=== PATIENT | female | born 1955 | race Caucasian/White ===

== ENCOUNTER 2016-08-02 09:27 | Inpatient (IN) | payer BC ==
[~2016-08-02] VITALS: Ht 162.6 cm; Wt 97.5 kg
[2016-08-02] MEDS ORDERED: MIRALAX *UNIT DOSE* 17GM PACKET PO PRN (10:00)
[2016-08-02] MEDS ORDERED: FLEET ENEMA PR PRN (10:00)
[2016-08-02] MEDS ORDERED: MOM 30ML SUSPENSION UDC PO PRN (10:00)
[2016-08-02 11:20] VITALS: BP 133/83
[2016-08-02] MEDS ORDERED: FOLI1TAB2 PO (12:03)
[2016-08-02] MEDS ORDERED: WARF-20 PO (12:03)
[2016-08-02] MEDS ORDERED: FERR325T16 PO (12:03)
[2016-08-02] MEDS ORDERED: PROA1AER INH (12:03)
[2016-08-02] MEDS ORDERED: CYMB60CA3 PO (12:03)
[2016-08-02] MEDS ORDERED: METF1000 PO (12:03)
[2016-08-02] MEDS ORDERED: COLA100C3 PO (12:03)
[2016-08-02] MEDS ORDERED: DAILTAB51 PO (12:03)
[2016-08-02] MEDS ORDERED: CHLO25TA PO (12:03)
[2016-08-02] MEDS ORDERED: ATOR40TA PO (12:03)
[2016-08-02] MEDS ORDERED: COLC1TAB13 PO (12:03)
[2016-08-02] MEDS ORDERED: RAMI25CA PO (12:03)
[2016-08-02] MEDS ORDERED: ASPI1TAB PO (12:03)
[2016-08-02] MEDS ORDERED: ASCO500T PO (12:03)
[2016-08-02] MEDS ORDERED: METO25TAB PO (12:05)
[2016-08-02] MEDS ORDERED: GLUCOSE 4 GM CHEW TABLET PO PRN (13:30)
[2016-08-02] MEDS ORDERED: GLUCAGON FOR INJ 1 MG VIAL (J1610) SC PRN (13:30)
[2016-08-02] MEDS ORDERED: DEXTROSE 50% 50 ML SYRINGE IV PRN (13:30)
[2016-08-02 14:00] VITALS: BP 135/81
[2016-08-02] MEDS ORDERED: WARFARIN SOD 4 MG TAB PO SCH (17:00)
[2016-08-02] MEDS: HumaLOG INSULIN (NovoLOG) PER UNIT SC SCH ×2 (17:08→20:18)
[2016-08-02] MEDS: metFORMIN (GLUCOPHAGE) 1000 MG TABLET PO SCH (17:08)
[2016-08-02 20:00] VITALS: BP 142/82
--- NOTE | 2016-08-02 20:07 | PMRHPE ---
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 fracture status post open reduction and internal fixation (ORIF) on 07/26/2016. DIAGNOSES: 1. A. Left hemiparesis. B. Aphasia, receptive greater than expressive. 2. Atherosclerotic cardiovascular disease. A. Coronary artery disease. B. Peripheral vascular disease. C. Hypertension. D. Hyperlipidemia. 3. Type 2 diabetes. 4. Chronic kidney disease secondary to diabetes. 5. Gout. 6. Status post uterine cancer. 7. Status post chemotherapy for uterine cancer. 9. Status post median sternotomy, VALADEZ and endoscopic right saphenous vein harvesting. The patient is postoperative day #8 from her 07/25/2016 surgery. 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 EKG revealed notable ST and other changes, and the patient was transferred to [facility] on 07/19/2016. Cardiac catheterization revealed severe three vessel disease and angioplasty and stent placement were not considered adequate so on 07/25/2016 the patient had a coronary artery bypass graft (CABG) times [address] Gonzalez. The patient did fairly well transferring from the operating room to the intensive care unit (ICU) and then on her first postoperative day she transferred to the floor. Her chest tubes were removed on postoperative day #2, and she was started on Coumadin with INR goal of 1.5 to 1.8 to maintain the vein patency. She was also noted to develop left sided weakness, unsteady gait with communications and mental alterations. CT scan showed atrophy and chronic small vessel changes but no bleeds or acute abnormalities. The patient started evaluation with speech, physical and occupational therapies. She also had a flair up of right ankle tenderness, which was felt to be gout and was started on colchicine. She currently is on aspirin 81 mg as well as 4 mg of Coumadin per day for treatment of maintained vein patency and clot prevention. The patient also has obstructive sleep apnea and uses continuous positive airway pressure (CPAP). The patient overall has medically stabilized and been making progress in therapy and is felt to be ready for transition to acute intensive rehabilitation and was transferred today 08/02/2016 to the acute rehabilitation unit at [facility] for this treatment. PAST MEDICAL HISTORY: Includes diagnoses above and: 1. Arthritis. 2. Asthma. 3. Congestive heart failure (CHF). 4. Chronic kidney disease. 5. Diabetes type 2. 6. Gout. 7. Hypertension. 8. Uterine cancer. PAST SURGICAL HISTORY: Includes median sternotomy and restrictions of no more than 5 pounds to the upper extremities at this time. Also, VALADEZ, coronary artery bypass graft (CABG) times six vessel, endoscopic right saphenous vein harvest. FAMILY HISTORY: Not obtained. SOCIAL HISTORY: The patient lives in a [facility] style house in [place], [place] with four steps into it, then a porch and another step up into the house itself. There is a bathroom without shower or tub on the first floor, along with a kitchen, dining room and two other rooms. Bedrooms are up a flight of stairs and the second floor is the other bathing/showering area. 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 MEDICATIONS: On admission to the floor: - albuterol HFA while awake inhaler - Mylanta 30 mL as needed for dyspepsia - vitamin C 500 mg daily - enteric coated aspirin 81 mg a day - atorvastatin 40 mg at night - chlorthalidone 25 mg daily - colchicine 0.6 mg twice a day, we will continue this for approximately four more doses and then stop. - duloxetine 60 mg daily - ferrous gluconate 324 mg by mouth twice a day - folic acid 1 mg by mouth daily - metformin 1000 mg by mouth twice a day with meals - metoprolol tartrate 25 mg by mouth twice a day - milk of magnesia 30 mg by mouth daily as needed for constipation - multivitamin one daily - MiraLAX one packet daily as needed for constipation - Ramipril 2.5 mg daily - Senokot one tablet by mouth at night - Fleet enema daily as needed for constipation - tonight the patient will be at 4 mg of Coumadin and will be undertaking daily INR to keep INR range in the 1.5 to 1.8 range ALLERGIES: The patient is allergic to ACETAMINOPHEN, ERYTHROMYCIN, TETRACYCLINE FAMILY ANTIBIOTICS. REVIEW OF SYSTEMS: Negative HEENT. Negative general. Cardiac is sternal pain but no longer any radiation or pain that was present when she was having cardiac ischemia. Pulmonary is negative. No recent wheezing or dyspnea. GI/, bowel and bladder working well at this time. No indigestion or other problems. Musculoskeletal, left upper and lower extremity weakness. Some arthritis pain in the right ankle. Neurologically, moderate receptive aphasia with mild to moderate expressive aphasia and this is causing the patient to be a poor historian, but is able to confirm home environment. Mood with no problems reported or psychiatric complaints. PHYSICAL EXAMINATION: The patient is a well nourished, well developed, morbidly obese, middle-aged, white female of average height, weighing more than 105 kg, who is alert and appears to be in a good mood and very positively interacting and trying to work with staff; however, is a clearly poor historian. VITAL SIGNS: Temperature 97.3, blood pressure 133/83, pulse 84, respirations 18, and the patient is 95% oxygen saturation on room air. HEENT: Normocephalic, atraumatic without facial droop. There is no dysarthria of her speech. Tongue is midline. There are no oral lesions seen. Nasal passageways are patent and the septum is straight. The patient's hearing is good. NECK: Supple, nontender. No lymph nodes are found. Thyroid is midline without a goiter and of appropriate size. There are no carotid bruits. CARDIAC: Regular rate and rhythm. Normal S1, S2. She has 2/4 bilateral radial pulses and 1/4 dorsal pedis pulse. She has good perfusion in the hands and feet with blanching under the nail beds. Chest wall shows a healing sternal incision without erythema, edema or drainage and that is close to sealing. It appears to have a subcutaneous suture closure to it and has a clean dressing over it. She has three stab wounds from the chest tubes that are covered with Band-Aids and also showing no inflammation in the epigastric region. LUNGS: All hurley are clear to auscultation with good air movement. No wheezing, rales or rhonchi detected. ABDOMEN: Obese, mildly distended with some gas and tympany. No palpable masses but normal bowel sounds are present in all quadrants. EXTREMITIES: The patient has good functional range of motion of the upper and lower extremities. She has some tenderness around the right calf from the saphenous vein donation site. That incision is also healing well without drainage at this time. There is no inflammation seen on that incision site. However, there is notable purple-blue ecchymosis seen along the medial aspect of the right thigh, but no skin lesions present. There is nonpitting 2+ edema present in the distal lower extremities. NEUROLOGIC: As above, with the patient having moderate receptive and mild to moderate expressive aphasia. Her mood is good. She does seem to be very aware of where she is and why she is here and is very cooperative. [id number] could not be tested for light touch and vibration due to poor feedback because of her receptive and expressive aphasia. The patient does have 4 to 5 strength in the right upper and lower extremities, though right upper extremity was not stress tested due to the weight restrictions on it, but grasp is intact. Left upper and lower extremities, however, show greater than 3 out of 4 left upper extremity strength with some difficulty with placement and coordination. Left lower extremity again showing about 3 out of 5 strength and being able to pickup driver the leg; however, poor endurance is noted. Again, uncertain if this is the patient's best effort in light of communication deficits. However, tone is normal in upper and lower extremities. PSYCHIATRIC: Mood is good and the patient was pleasant and cooperative. PERTINENT LABORATORY: The patient's INR this morning was approximately 1.37, white blood count yesterday was 11.6 with hemoglobin of 8.1 and hematocrit of 24.0. MCV of 83.6 and platelets 265,000. Creatinine yesterday was mildly elevated at 1.05 with a normal BUN of 23, mildly low sodium 135, potassium 4.2, chloride slightly low at 98, carbon dioxide of 27. New laboratories will be checked tomorrow. ADMITTING DIAGNOSES: 1. Rehabilitation of embolic CVA with left hemiparesis and receptive aphasia. 2. Status post coronary artery bypass graft (CABG) times six vessels secondary to cardiac ischemia, congestive failure, coronary artery disease, hypertension, hyperlipidemia. 3. Type 2 diabetes mellitus with chronic kidney disease. 4. Gout in the right ankle. PLAN: With regard to the CVA, we will proceed with acute intensive three hours per day of therapy, including speech therapy to work on communications and further assessment regarding cognition, as well as review of swallowing, along with physical therapy (PT) to work on balance, mobility, endurance, and transfers and occupational therapy (OT) to work on activities of daily living, transfers. Restrictions include no more than 5 pound load to either upper extremity secondary to sternotomy. The patient will need wound care to the sternum and the left calf from the CABG. Anticipated length of stay is 18 to 21 days. 2. Atherosclerotic cardiovascular disease. We will continue antihypertensive medications of Ramipril, metoprolol tartrate, hyperlipidemia, atorvastatin, and also aspirin for antiplatelet activity, along with Coumadin with for now daily INR and target INR range of 1.5 to 1.8. 3. Diabetes. Hypoglycemic precautions have been ordered, and we will continue the metformin and a consistent carbohydrate diet, along with before food fingersticks and insulin sliding scale and also before food and nightly blood sugar check and sliding scale. 4. Gout. We will continue colchicine 6 mg twice a day for four more doses. 5. Asthma. We will continue the patient with albuterol inhaler two puffs every four hours as needed for dyspnea. POST ADMISSION PHYSICIAN EVALUATION: The patient, who is a middle-aged, obese, white female with sternum healing well and without any drainage and healing chest tube sites, as well as right calf incision. She is alert and, in general, oriented, though precise orientation cannot be tested due to the receptive and expressive aphasia, but the patient does seem to be very aware of who she is, where she is, and why she is here for her health reason and her goal is to rehabilitate and return home. I think that this is reflected in her mood and willingness and participate and work with the staff in the short time she has been here, as well as the notes from her prior therapist. Medically, she is fairly stable at this time, though she will need ongoing care for the problems noted above. However, I do not feel that this will interfere with her ability to participate in three hours of therapy per day. I do anticipate that she has a good prognosis for returning to home for discharge environment and her estimated length of stay is 18 to 21 days, unless the patient shows marked improvement quickly in lower extremity strength and balance, such that she is able to perform stairs easily and has moderate to long distance ambulation and modified to stand by assistance, transfer skills and minimal assistance to stand by assistance and activities of daily living skills. Time spent on chart review, history and physical and documentation is greater than 70 minutes.
[2016-08-02] MEDS: SENNA 8.6 MG TAB (SENOKOT) PO SCH (20:17)
[2016-08-02] MEDS: FERROUS GLUCONATE 324 MG TAB PO SCH (20:17)
[2016-08-02] MEDS: ATORVASTATIN 20 MG TAB PO SCH (20:17)
[2016-08-02] MEDS: METOPROLOL TART 25 MG TABLET PO SCH (20:17)
[2016-08-02] MEDS: COLCHICINE 0.6 MG TAB PO SCH (20:17)
[2016-08-03 06:00] VITALS: BP 135/84
[2016-08-03 07:19] LABS: BASO % 0.5 % (0.0-1.0); EOS # 0.6 K/mm3 (0.0-0.50); EOS % 5.6 % (0.0-3.0); LARGE UNSTAINED CELL # 0.3 K/mm3 (0.0-0.4); LYMPH % 16.4 % (24.0-44.0); MEAN CORPUSCULAR HGB CONC 32.5 g/dl (32.0-36.5); MEAN CORPUSCULAR VOLUME 86.1 fl (80.0-96.0); MONO # 0.8 K/mm3 (0.0-0.8); MONO % 7.8 % (0.0-5.0); NEUTROPHILS % 66.6 % (36.0-66.0); PLATELET COUNT, AUTOMATED 343 k/mm3 (150-450); WHITE BLOOD COUNT 10.4 K/mm3 (4.0-10.0)
[2016-08-03 07:26] LABS: INR 1.6
[2016-08-03] MEDS: metFORMIN (GLUCOPHAGE) 1000 MG TABLET PO SCH ×2 (07:52→17:21)
[2016-08-03 07:53] LABS: ALBUMIN 2.3 GM/DL (3.2-5.2); ALBUMIN/GLOBULIN RATIO 0.52 (1.00-1.93); BILIRUBIN,TOTAL 0.5 MG/DL (0.2-1.0); CALCIUM LEVEL 9.2 MG/DL (8.5-10.1); CREATININE FOR GFR 1.18 MG/DL (0.55-1.02); GLOMERULAR FILTRATION RATE 49.9 (>51); POTASSIUM SERUM 4.1 MEQ/L (3.5-5.1); TOTAL PROTEIN 6.7 GM/DL (6.4-8.2)
[2016-08-03] MEDS: HumaLOG INSULIN (NovoLOG) PER UNIT SC SCH ×4 (07:53→20:21)
[2016-08-03] MEDS: DULoxetine 30 MG CAP (CYMBALTA) PO SCH (09:09)
[2016-08-03] MEDS: CHLORTHALIDONE 25 MG TAB PO SCH (09:09)
[2016-08-03] MEDS: COLCHICINE 0.6 MG TAB PO SCH ×2 (09:09→20:48)
[2016-08-03] MEDS: ASPIRIN 81 MG ENTERIC TAB PO SCH (09:11)
[2016-08-03] MEDS: METOPROLOL TART 25 MG TABLET PO SCH ×2 (09:11→20:49)
[2016-08-03] MEDS: MULTIVITAMINS/MINERALS THERAP 1 TAB PO SCH (09:12)
[2016-08-03] MEDS: ASCORBIC ACID 500 MG TAB PO SCH (09:12)
[2016-08-03] MEDS: FERROUS GLUCONATE 324 MG TAB PO SCH ×2 (09:12→20:49)
[2016-08-03] MEDS: FOLIC ACID 1 MG TAB PO SCH (09:12)
[2016-08-03] MEDS: RAMIPRIL 2.5 MG CAP PO SCH (09:13)
--- NOTE | 2016-08-03 12:24 | IPNPDOC ---
Staff Psychiatrist Progress Note DATE OF SERVICE: 08/03/16 DATE OF ADMISSION: August 02, 2016 at 11:08 INPATIENT REHABILITATION ADMISSION DAY: #1 SUBJECTIVE: Patient is a 61-year-old white female with Right CVA secondary to CABG 6 vessels. Patient denies any chest pain except incisional and reports no fever or chills or significant GI problems though her appetite is still off. Patient expresses having felt short of breath at times since admission, but she has been maintaining pulse oximetries of 95-97% on room air. She denies a wheezing or E usual symptoms of her asthma ALLERGIES: See Below MEDICATIONS: Reviewed, see below. OBJECTIVE: VITAL SIGNS: Please see below. PHYSICAL EXAMINATION: GENERAL: Obese middle-aged white female who is alert and cooperative but has notable moderate intensity Aphasia. Patient is in mild muscle skeletal distress of the chest and right leg at saphenous vein donor site. HEENT: Normocephalic atraumatic. CARDIOVASCULAR: Regular rate and rhythm with normal S1-S2 without S3-S4 murmurs or rubs. 2 out 4 bilateral radial pulses LUNGS: All hurley clear to auscultation. ABDOMEN: Obese, nontender with normal bowel sounds in all quadrants. NEUROLOGICAL: Speech is worse and overall clear with no dysarthria, but patient still does not seem to understand some things said to her. SKIN: Healing sternal incision and right calf incision. LABORATORY DATA: Reviewed. Please see below. MICROBIOLOGY: Please see below. IMAGING: No new. DVT prophylaxis ordered?: INR 1.6 today with target is 1.5-1.8. I will adjust the Coumadin to 2 mg today as she has been climbing with 3 and 4 mg doses. ASSESSMENT AND PLAN: 1. Rehabilitation of right CVA with left hemiparesis and moderately dense Aphasia: Patient proceeding with team evaluation. 2. CABG 6 vessel: Blood pressure and oxygenation seem to be doing well with no abnormal beats or arrhythmias noted. Incision is healing well. I anticipate based on the last 2 days of Coumadin patient will probably overshoot to 1.8 level so I have reduced the Coumadin tonight to 2 mg and will recheck INR in the morning. 3. Anemia: Moderate with H&H of 8.5 and 26.3 we'll need to continue be watched but also noted patient has mildly elevated WBC of 10.4 with neutrophils increased at 66.6% which could signal early signs of infection versus stress. 4. Kidney disease: BUNs mildly increased at 26 with creatinine of 1.18 and GFR of 49.9: but electrolytes are normal. So salt balance is good implying reasonable renal function. We will continue to follow with periodic BMPs and CMPs. 5. Hypoalbuminemia: Patient is at 2.3. I am trying to encourage patient to have a good intake including proteins to help rebuild and heal. TIME SPENT: Chart Review, examination and documentation >25 minutes. Allergies Coded Allergies: Erythromycin (Verified Allergy, Intermediate, Welts, 08/02/16) Welts Tetracyclines & Related (Verified Allergy, Intermediate, Welts, 08/02/16) Welts Acetaminophen (Verified Adverse Reaction, Unknown, tinitus, 08/02/16) Also dizziness Vital Signs Vital Signs Date Time Temp Pulse Resp B/P (MAP) Pulse Ox O2 Delivery O2 Flow Rate FiO2 08/03/16 09:11 90 150/90 08/03/16 06:00 97.7 18 96 Room Air Laboratory Data CBC/BMP Laboratory Tests 08/03/16 07:01 Red Blood Count 3.05 L, Mean Corpuscular Volume 86.1, Mean Corpuscular Hemoglobin 28.0, Mean Corpuscular Hemoglobin Concent 32.5, Red Cell Distribution Width 14.0, Neutrophils (%) (Auto) 66.6 H, Lymphocytes (%) (Auto) 16.4 L, Monocytes (%) (Auto) 7.8 H, Eosinophils (%) (Auto) 5.6 H, Basophils (%) (Auto) 0.5, Neutrophils # (Auto) 7.0, Lymphocytes # (Auto) 2.0, Monocytes # ( Auto) 0.8, Eosinophils # (Auto) 0.6 H, Basophils # (Auto) 0.0, Calcium Level 9.2 , Aspartate Amino Transf (AST/SGOT) 15, Alanine Aminotransferase (ALT/SGPT) 19, Alkaline Phosphatase 207 H, Total Bilirubin 0.5, Total Protein 6.7, Albumin 2.3 L Labs 24H Laboratory Tests 2 08/02/16 14:20: Bedside Glucose (Misc Panel) 171H 08/02/16 16:28: Bedside Glucose (Misc Panel) 162H 08/02/16 19:44: Bedside Glucose (Misc Panel) 163H 08/03/16 06:53: Bedside Glucose (Misc Panel) 143H 08/03/16 07:01: White Blood Count 10.4H, Red Blood Count 3.05L, Hemoglobin 8.5L, Hematocrit 26.3L, Mean Corpuscular Volume 86.1, Mean Corpuscular Hemoglobin 28.0, Mean Corpuscular Hemoglobin Concent 32.5, Red Cell Distribution Width 14.0, Platelet Count 343, Neutrophils (%) (Auto) 66.6H, Lymphocytes (%) (Auto) 16.4L, Monocytes (%) (Auto) 7.8H, Eosinophils (%) (Auto) 5.6H, Basophils (%) (Auto) 0.5 , Neutrophils # (Auto) 7.0, Lymphocytes # (Auto) 2.0, Monocytes # (Auto) 0.8, Eosinophils # (Auto) 0.6H, Basophils # (Auto) 0.0, Large Unclassified Cells % 3.0, Large Unclassified Cells # 0.3, Prothrombin Time 19.1H, Prothromb Time International Ratio 1.60, Anion Gap 13, Glomerular Filtration Rate 49.9L, Blood Urea Nitrogen 26H, Creatinine 1.18H, Sodium Level 136, Potassium Level 4.1, Chloride Level 101, Carbon Dioxide Level 22, Calcium Level 9.2, Aspartate Amino Transf (AST/SGOT) 15, Alanine Aminotransferase (ALT/SGPT) 19, Alkaline Phosphatase 207H, Total Bilirubin 0.5, Total Protein 6.7, Albumin 2.3L, Albumin/ Globulin Ratio 0.52L 08/03/16 11:20: Bedside Glucose (Misc Panel) 141H Current Medications Current Medications Current Medications Al Hydrox/Mg Hydrox/Simethicone (Mylanta) 30 ml Q4HP PRN PO DYSPEPSIA; Start at 10:00; Stop 09/01/16 at 09:59 Albuterol Sulfate (Proventil, Ventolin Hfa) 2 puff Q4HP PRN INH SHORTNESS OF BREATH; Start 08/02/16 at 10:30; Stop 09/01/16 at 10:29 Ascorbic Acid (Vitamin C) 500 mg DAILY PO Last administered on 08/03/16t 09:12; Start 08/03/16 at 09:00; Stop 09/02/16 at 08:59 Aspirin (Ecotrin) 81 mg DAILY PO Last administered on 08/03/16 09:11; Start 08/03/16 at 09:00; Stop 09/02/16 at 08:59 Atorvastatin Calcium (Lipitor) 40 mg QHS PO Last administered on 08/02/16 20:17 ; Start 08/02/16 at 21:00; Stop 09/01/16 at 20:59 Chlorthalidone (Hygroton) 25 mg DAILY PO Last administered on 08/03/16 09:09; Start 08/03/16 at 09:00; Stop 09/02/16 at 08:59 Colchicine (Colcrys) 0.6 mg BID PO Last administered on 08/03/16 09:09; Start 08/02/16 at 21:00; Stop 08/04/16 at 12:00 Dextrose (Dextrose 50%) 25 ml ASDIRECTED PRN IV SEE LABEL COMMENTS; Start at 13:30; Stop 09/01/16 at 13:29 Duloxetine HCl (Cymbalta) 60 mg DAILY PO Last administered on 08/03/16 09:09; Start 08/03/16 at 09:00; Stop 09/02/16 at 08:59 Ferrous Gluconate (Fergon) 324 mg BID PO Last administered on 08/03/16 09:12; Start 08/02/16 at 21:00; Stop 09/01/16 at 20:59 Folic Acid (Folic Acid) 1 mg DAILY PO Last administered on 08/03/16 09:12; Start 08/03/16 at 09:00; Stop 09/02/16 at 08:59 Glucagon (Glucagon) 1 mg ASDIRECTED PRN SC SEE LABEL COMMENTS; Start 08/02/16 at 13:30; Stop 09/01/16 at 13:29 Glucose (Glucose) 16 GM ASDIRECTED PRN PO SEE LABEL COMMENTS; Start 08/02/16 at 13:30; Stop 09/01/16 at 13:29 Home Med (Med Rec Complete!) ASDIRECTED XX ; Start 08/02/16 at 13:45; Stop at 13:59; Status DC Insulin Human Lispro (HumaLOG INSULIN) See Protocol Table AC SC Last administered on 08/03/16 07:53; Start 08/02/16 at 17:30; Stop 09/01/16 at 17:29 Insulin Human Lispro (HumaLOG INSULIN) See Protocol Table QHS SC ; Start at 21:00; Stop 09/01/16 at 20:59 Magnesium Hydroxide (Milk Of Magnesia) 30 ml DAILYPRN PRN PO CONSTIPATION; Start 08/02/16 at 10:00; Stop 09/01/16 at 09:59 Metformin HCl (Glucophage) 1,000 mg BID@,18 PO Last administered on 08/03/16 07:52; Start 08/02/16 at 18:00; Stop 09/01/16 at 17:59 Metoprolol Tartrate (Lopressor) 25 mg BID PO Last administered on 08/03/16 09: 11; Start 08/02/16 at 21:00; Stop 09/01/16 at 20:59 Multivitamins (Theragram-M) 1 tab DAILY PO Last administered on 08/03/16 09:12 ; Start 08/03/16 at 09:00; Stop 09/02/16 at 08:59 Polyethylene Glycol (Miralax) 1 pkt DAILY PRN PO CONSTIPATION; Start 08/02/16 at 10:00; Stop 09/01/16 at 09:59 Ramipril (Altace) 2.5 mg DAILY PO Last administered on 08/03/16 09:13; Start at 09:00; Stop 09/02/16 at 08:59 Senna (Senokot) 1 tab QHS PO Last administered on 08/02/16 20:17; Start at 21:00; Stop 09/01/16 at 20:59 Sodium Biphosphate/ Sodium Phosphate (Fleet Enema) 1 ea DAILYPRN PRN NC CONSTIPATION; Start 08/02/16 at 10:00; Stop 09/01/16 at 09:59 Warfarin Sodium (Coumadin) 4 mg 1T@17 PO Last administered on 08/02/16 17:08; Start 08/02/16 at 17:00; Stop 08/02/16 at 17:01; Status DC HERBERT PHILIPPE MD August 03, 2016 12:24
[2016-08-03 14:14] VITALS: BP 141/81
[2016-08-03] MEDS: ALBUTEROL 90 MCG/ACT 8GM HFA INHALER INH PRN ×2 (16:46→22:56)
[2016-08-03] MEDS ORDERED: WARFARIN SOD 2 MG TAB PO ONE (17:00)
[2016-08-03 20:30] VITALS: BP 145/56
[2016-08-03] MEDS: ATORVASTATIN 20 MG TAB PO SCH (20:48)
[2016-08-03] MEDS: SENNA 8.6 MG TAB (SENOKOT) PO SCH (20:49)
[2016-08-04 06:00] VITALS: BP 132/70
[2016-08-04] MEDS: metFORMIN (GLUCOPHAGE) 1000 MG TABLET PO SCH ×2 (07:53→17:36)
[2016-08-04] MEDS: HumaLOG INSULIN (NovoLOG) PER UNIT SC SCH ×4 (07:53→20:15)
[2016-08-04 08:57] LABS: INR 1.55
[2016-08-04] MEDS: COLCHICINE 0.6 MG TAB PO SCH (09:27)
[2016-08-04] MEDS: MULTIVITAMINS/MINERALS THERAP 1 TAB PO SCH (09:27)
[2016-08-04] MEDS: FOLIC ACID 1 MG TAB PO SCH (09:27)
[2016-08-04] MEDS: FERROUS GLUCONATE 324 MG TAB PO SCH ×2 (09:28→20:15)
[2016-08-04] MEDS: RAMIPRIL 2.5 MG CAP PO SCH (09:28)
[2016-08-04] MEDS: CHLORTHALIDONE 25 MG TAB PO SCH (09:28)
[2016-08-04] MEDS: DULoxetine 30 MG CAP (CYMBALTA) PO SCH (09:28)
[2016-08-04] MEDS: METOPROLOL TART 25 MG TABLET PO SCH ×2 (09:28→20:16)
[2016-08-04] MEDS: ASPIRIN 81 MG ENTERIC TAB PO SCH (09:28)
[2016-08-04] MEDS: ASCORBIC ACID 500 MG TAB PO SCH (09:28)
--- NOTE | 2016-08-04 12:07 | IPNPDOC ---
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 Patient continues to have some incisional pain in the chest and right calf sites otherwise doing fairly well though she is tired from yesterday's therapy. No fever or chills and patient reports bowel and bladder working well. She expresses her great desire to have a shower. ALLERGIES: See Below MEDICATIONS: Reviewed, see below. OBJECTIVE: VITAL SIGNS: Please see below. PHYSICAL EXAMINATION: GENERAL: Overweight middle-age white female in mild musculoskeletal distress. HEENT: Normocephalic/atraumatic. CARDIOVASCULAR: Regular rate and rhythm with normal S1-S2 without S3-S4 murmurs or rubs. 2 out 4 bilateral radial pulses. LUNGS: All hurley are clear to auscultation. ABDOMEN: Obese with 3 drain wounds that have yellow eschar across them and about 1 cm in the horizontal and half a centimeter in the vertical of there are elliptical shape. There is no drainage from these wounds nor significant erythema around them. Bowel sounds are present in all quadrants. NEUROLOGICAL: Patient is alert and oriented to person and place but due to aphasia is unclear the degree of time and situation awareness patient has. However she is very attuned to environmental clues and works hard to be compliant with staff. She is progressing in her assessment and early training. SKIN: Chest, substernal and right leg wounds are healing from her surgery without any current drainage or inflammation. LABORATORY DATA: Reviewed. Please see below. MICROBIOLOGY: Please see below. IMAGING: No new images. DVT prophylaxis ordered?: Patient continues on Coumadin INR today 1.55 so I will prescribe 4 mg of Coumadin tonight and recheck INR in the morning. ASSESSMENT AND PLAN: 1. Rehabilitation of left hemiparesis from right CVA: Patient will be reviewed in team rounds today. She appears to be working very well with nursing and the therapies. Patient did better in speech today but is felt to be equally impaired in expressive as well as receptive language. PT and OT noticed improved balance and strength versus yesterday initial evaluations. On reviewing team rounds we anticipate for patient to be safe to be discharged home ; that she will need be able to manage a flight of stairs. To achieve this and the other levels of min. assist to more likely standby assistance and modified independence the patient will require 14-18 days on the acute intensive rehabilitation unit. 2. CABG 6 vessels: Patient without any signs of angina just expected pain at wound signs which are healing well. Will change chest dressings over the chest tube sites to Tegaderm and allow patient to have her shower. 3. Anticoagulation: Patient therapeutic range today as noted above. It appears her daily doses gone be probably between 3 and 4 mg per day of Coumadin. TIME SPENT: Chart Review, examination and documentation greater than 35 minutes. Allergies Coded Allergies: Erythromycin (Verified Allergy, Intermediate, Welts, 08/02/16) Welts Tetracyclines & Related (Verified Allergy, Intermediate, Welts, 08/02/16) Welts Acetaminophen (Verified Adverse Reaction, Unknown, tinitus, 08/02/16) Also dizziness Vital Signs Vital Signs Date Time Temp Pulse Resp B/P (MAP) Pulse Ox O2 Delivery O2 Flow Rate FiO2 08/04/16 09:28 132/70 08/04/16 06:00 98.3 84 18 98 Room Air Laboratory Data Labs 24H Laboratory Tests 2 08/03/16 17:08: Bedside Glucose (Misc Panel) 147H 08/03/16 20:19: Bedside Glucose (Misc Panel) 150H 08/04/16 06:46: Bedside Glucose (Misc Panel) 147H 08/04/16 08:26: Prothrombin Time 18.7H, Prothromb Time International Ratio 1.55 08/04/16 11:21: Bedside Glucose (Misc Panel) 138H Current Medications Current Medications Current Medications Al Hydrox/Mg Hydrox/Simethicone (Mylanta) 30 ml Q4HP PRN PO DYSPEPSIA; Start at 10:00; Stop 09/01/16 at 09:59 Albuterol Sulfate (Proventil, Ventolin Hfa) 2 puff Q4HP PRN INH SHORTNESS OF BREATH Last administered on 08/03/16 22:56; Start 08/02/16 at 10:30; Stop at 10:29 Ascorbic Acid (Vitamin C) 500 mg DAILY PO Last administered on 08/04/16 09:28; Start 08/03/16 at 09:00; Stop 09/02/16 at 08:59 Aspirin (Ecotrin) 81 mg DAILY PO Last administered on 08/04/16 09:28; Start 08/03/16 at 09:00; Stop 09/02/16 at 08:59 Atorvastatin Calcium (Lipitor) 40 mg QHS PO Last administered on 08/03/16 20:48 ; Start 08/02/16 at 21:00; Stop 09/01/16 at 20:59 Chlorthalidone (Hygroton) 25 mg DAILY PO Last administered on 08/04/16 09:28; Start 08/03/16 at 09:00; Stop 09/02/16 at 08:59 Colchicine (Colcrys) 0.6 mg BID PO Last administered on 08/04/16 09:27; Start 08/02/16 at 21:00; Stop 08/04/16 at 12:00 Dextrose (Dextrose 50%) 25 ml ASDIRECTED PRN IV SEE LABEL COMMENTS; Start at 13:30; Stop 09/01/16 at 13:29 Duloxetine HCl (Cymbalta) 60 mg DAILY PO Last administered on 08/04/16 09:28; Start 08/03/16 at 09:00; Stop 09/02/16 at 08:59 Ferrous Gluconate (Fergon) 324 mg BID PO Last administered on 08/04/16 09:28; Start 08/02/16 at 21:00; Stop 09/01/16 at 20:59 Folic Acid (Folic Acid) 1 mg DAILY PO Last administered on 08/04/16 09:27; Start 08/03/16 at 09:00; Stop 09/02/16 at 08:59 Glucagon (Glucagon) 1 mg ASDIRECTED PRN SC SEE LABEL COMMENTS; Start 08/02/16 at 13:30; Stop 09/01/16 at 13:29 Glucose (Glucose) 16 GM ASDIRECTED PRN PO SEE LABEL COMMENTS; Start 08/02/16 at 13:30; Stop 09/01/16 at 13:29 Home Med (Med Rec Complete!) ASDIRECTED XX ; Start 08/02/16 at 13:45; Stop at 13:59; Status DC Insulin Human Lispro (HumaLOG INSULIN) See Protocol Table AC SC Last administered on 08/04/16 07:53; Start 08/02/16 at 17:30; Stop 09/01/16 at 17:29 Insulin Human Lispro (HumaLOG INSULIN) See Protocol Table QHS SC ; Start at 21:00; Stop 09/01/16 at 20:59 Magnesium Hydroxide (Milk Of Magnesia) 30 ml DAILYPRN PRN PO CONSTIPATION; Start 08/02/16 at 10:00; Stop 09/01/16 at 09:59 Metformin HCl (Glucophage) 1,000 mg BID@08,18 PO Last administered on 08/04/16 07:53; Start 08/02/16 at 18:00; Stop 09/01/16 at 17:59 Metoprolol Tartrate (Lopressor) 25 mg BID PO Last administered on 08/04/16 09: 28; Start 08/02/16 at 21:00; Stop 09/01/16 at 20:59 Multivitamins (Theragram-M) 1 tab DAILY PO Last administered on 08/04/16 09:27 ; Start 08/03/16 at 09:00; Stop 09/02/16 at 08:59 Polyethylene Glycol (Miralax) 1 pkt DAILY PRN PO CONSTIPATION; Start 08/02/16 at 10:00; Stop 09/01/16 at 09:59 Ramipril (Altace) 2.5 mg DAILY PO Last administered on 08/04/16 09:28; Start at 09:00; Stop 09/02/16 at 08:59 Senna (Senokot) 1 tab QHS PO Last administered on 08/03/16 20:49; Start at 21:00; Stop 09/01/16 at 20:59 Sodium Biphosphate/ Sodium Phosphate (Fleet Enema) 1 ea DAILYPRN PRN [place] CONSTIPATION; Start 08/02/16 at 10:00; Stop 09/01/16 at 09:59 Warfarin Sodium (Coumadin) 4 mg 1T@17 PO Last administered on 08/02/16 17:08; Start 08/02/16 at 17:00; Stop 08/02/16 at 17:01; Status DC HERBERT PHILIPPE MD August 04, 2016 12:07
[2016-08-04 14:00] VITALS: BP 140/69
[2016-08-04] MEDS ORDERED: WARFARIN SOD 4 MG TAB PO ONE (17:00)
[2016-08-04 17:30] VITALS: BP 136/82
[2016-08-04] MEDS: SENNA 8.6 MG TAB (SENOKOT) PO SCH (20:06)
[2016-08-04 20:13] VITALS: BP 158/82
[2016-08-04] MEDS: ATORVASTATIN 20 MG TAB PO SCH (20:15)
[2016-08-05 06:30] VITALS: BP 168/72
[2016-08-05 06:47] LABS: MEAN CORPUSCULAR HEMOGLOBIN 27.7 pg (27.0-33.0); MEAN CORPUSCULAR HGB CONC 31.3 g/dl (32.0-36.5); MEAN CORPUSCULAR VOLUME 88.3 fl (80.0-96.0); RED CELL DISTRIBUTION WIDTH 14.1 % (11.5-14.5); WHITE BLOOD COUNT 13.3 K/mm3 (4.0-10.0)
[2016-08-05 06:51] LABS: INR 1.58
[2016-08-05 07:09] LABS: ALBUMIN 2.4 GM/DL (3.2-5.2); ALBUMIN/GLOBULIN RATIO 0.45 (1.00-1.93); BILIRUBIN,TOTAL 0.3 MG/DL (0.2-1.0); CALCIUM LEVEL 10.2 MG/DL (8.5-10.1); CREATININE FOR GFR 1.3 MG/DL (0.55-1.02); GLOMERULAR FILTRATION RATE 44.6 (>51); POTASSIUM SERUM 4.5 MEQ/L (3.5-5.1); TOTAL PROTEIN 7.7 GM/DL (6.4-8.2)
[2016-08-05] MEDS: HumaLOG INSULIN (NovoLOG) PER UNIT SC SCH ×4 (08:13→20:21)
[2016-08-05] MEDS: METOPROLOL TART 25 MG TABLET PO SCH ×2 (08:14→20:19)
[2016-08-05] MEDS: CHLORTHALIDONE 25 MG TAB PO SCH (08:14)
[2016-08-05] MEDS: FOLIC ACID 1 MG TAB PO SCH (08:14)
[2016-08-05] MEDS: MULTIVITAMINS/MINERALS THERAP 1 TAB PO SCH (08:14)
[2016-08-05] MEDS: RAMIPRIL 2.5 MG CAP PO SCH (08:14)
[2016-08-05] MEDS: metFORMIN (GLUCOPHAGE) 1000 MG TABLET PO SCH ×2 (08:14→17:44)
[2016-08-05] MEDS: ASPIRIN 81 MG ENTERIC TAB PO SCH (08:14)
[2016-08-05] MEDS: FERROUS GLUCONATE 324 MG TAB PO SCH ×2 (08:14→20:17)
[2016-08-05] MEDS: DULoxetine 30 MG CAP (CYMBALTA) PO SCH (08:15)
[2016-08-05] MEDS: ASCORBIC ACID 500 MG TAB PO SCH (08:15)
--- NOTE | 2016-08-05 11:47 | IPNPDOC ---
Core Shaper Sides Progress Note DATE OF SERVICE: 08/05/16 DATE OF ADMISSION: August 02, 2016 at 11:08 INPATIENT REHABILITATION ADMISSION DAY: #3 SUBJECTIVE: Patient is a 61-year-old white female with right CVA with left hemiparesis/neglect and aphasia. Patient is also impulsive and somewhat frustrated by the effects of the stroke. She reports pain along the sternal incision likely greater today and yesterday and reports slightly more sensation of dyspnea. Overall pain is in good control, no nausea/fevers/chills/other problems. Patient reports bowel and bladder working well. ALLERGIES: See Below MEDICATIONS: Reviewed, see below. OBJECTIVE: VITAL SIGNS: Please see below. PHYSICAL EXAMINATION: GENERAL: Middle-aged white female who is alert and seems to be doing better today with both receptive and expressive language. HEENT: Normocephalic/atraumatic. CARDIOVASCULAR: Regular rate and rhythm with normal S1-S2. Throughout for bilateral radial pulses. LUNGS: All hurley are clear to auscultation with no wheezes rales or rhonchi appreciated. ABDOMEN: Obese, soft, nontender with normal bowel sounds in all quadrants. NEUROLOGICAL: Patient appears to be moving left upper and lower extremity better than yesterday. SKIN: Along the sternal incision appears to be slightly darker than yesterday but no drainage. Epigastric chest tube sites also doing well. LABORATORY DATA: Reviewed. Please see below. MICROBIOLOGY: Please see below. IMAGING: No new imaging. DVT prophylaxis ordered?: INR 1.58 today inside target range. I will order 3.75 mg of Coumadin at 1700 hrs. for the next 3 days as patient seems to be staying fairly steady about 7 mg intake in the prior day and a half to the morning INR. This dose is slightly higher than what she been averaging to remain stable at about 1.55 to 1.60 for her INR. ASSESSMENT AND PLAN: 1. Rehabilitation of right CVA with left neglect/hemiparesis, aphasia and impulsiveness: Patient seems to sustained no injury from last night when she tried to get up from the commode and transfer herself independently to bed. She does however seem more where of the need for safety today but we need to continue to keep a close eye on her as some impulsiveness remains. He is very committed to participating in therapies and benefiting from them I feel already. Discharge date anticipated to be around May 16 through the . 2. CABG 6 vessels: Fish without blood pressure but high this morning at 168/72 ' but good oxygenation on room air. Skin shows good color and patient's endurance appears to be tolerating the therapy well. Her postoperative and anemia also showing some slight improvement with an H&H of 9.4/29.9%. There is some elevation of white count now 13.3 from unclear stressor with patient being afebrile. Her incisions are doing well, though engaging patient up last night there is always concerns about a stress and loading on the sternum. We will need to keep a close eye on this and the slight darkish color along the incision line. 3. Obstructive sleep apnea: We need to encourage patient to use her CPAP. This should help with blood pressure and decrease some of the load on her sternum. TIME SPENT: Chart Review, examination and documentation greater than 25 minutes. Allergies Coded Allergies: Erythromycin (Verified Allergy, Intermediate, Welts, 08/02/16) Welts Tetracyclines & Related (Verified Allergy, Intermediate, Welts, 08/02/16) Welts Acetaminophen (Verified Adverse Reaction, Unknown, tinitus, 08/02/16) Also dizziness Vital Signs Vital Signs Date Time Temp Pulse Resp B/P (MAP) Pulse Ox O2 Delivery O2 Flow Rate FiO2 08/05/16 09:00 Room Air 08/05/16 08:14 168/72 08/05/16 06:30 97.9 86 18 96 Laboratory Data CBC/BMP Laboratory Tests 08/05/16 06:22 Red Blood Count 3.39 L, Mean Corpuscular Volume 88.3, Mean Corpuscular Hemoglobin 27.7, Mean Corpuscular Hemoglobin Concent 31.3 L, Red Cell Distribution Width 14.1, Calcium Level 10.2 H, Aspartate Amino Transf (AST/SGOT ) 16, Alanine Aminotransferase (ALT/SGPT) 20, Alkaline Phosphatase 174 H, Total Bilirubin 0.3, Total Protein 7.7, Albumin 2.4 L Labs 24H Laboratory Tests 2 08/04/16 16:42: Bedside Glucose (Misc Panel) 139H 08/04/16 20:12: Bedside Glucose (Misc Panel) 166H 08/05/16 06:22: Prothrombin Time 19.0H, Prothromb Time International Ratio 1.58, Anion Gap 10, Glomerular Filtration Rate 44.6L, Blood Urea Nitrogen 27H, Creatinine 1.30H, Sodium Level 138, Potassium Level 4.5, Chloride Level 103, Carbon Dioxide Level 25, Calcium Level 10.2H, Aspartate Amino Transf (AST/SGOT) 16, Alanine Aminotransferase (ALT/SGPT) 20, Alkaline Phosphatase 174H, Total Bilirubin 0.3, Total Protein 7.7, Albumin 2.4L, Albumin/Globulin Ratio 0.45L Current Medications Current Medications Current Medications Al Hydrox/Mg Hydrox/Simethicone (Mylanta) 30 ml Q4HP PRN PO DYSPEPSIA; Start at 10:00; Stop 09/01/16 at 09:59 Albuterol Sulfate (Proventil, Ventolin Hfa) 2 puff Q4HP PRN INH SHORTNESS OF BREATH Last administered on 08/03/16 22:56; Start 08/02/16 at 10:30; Stop at 10:29 Ascorbic Acid (Vitamin C) 500 mg DAILY PO Last administered on 08/05/16 08:15; Start 08/03/16 at 09:00; Stop 09/02/16 at 08:59 Aspirin (Ecotrin) 81 mg DAILY PO Last administered on 08/05/16 08:14; Start 08/03/16 at 09:00; Stop 09/02/16 at 08:59 Atorvastatin Calcium (Lipitor) 40 mg QHS PO Last administered on 08/04/16 20:15 ; Start 08/02/16 at 21:00; Stop 09/01/16 at 20:59 Chlorthalidone (Hygroton) 25 mg DAILY PO Last administered on 08/05/16 08:14; Start 08/03/16 at 09:00; Stop 09/02/16 at 08:59 Colchicine (Colcrys) 0.6 mg BID PO Last administered on 08/04/16 09:27; Start 08/02/16 at 21:00; Stop 08/04/16 at 12:00; Status DC Dextrose (Dextrose 50%) 25 ml ASDIRECTED PRN IV SEE LABEL COMMENTS; Start at 13:30; Stop 09/01/16 at 13:29 Duloxetine HCl (Cymbalta) 60 mg DAILY PO Last administered on 08/05/16 08:15; Start 08/03/16 at 09:00; Stop 09/02/16 at 08:59 Ferrous Gluconate (Fergon) 324 mg BID PO Last administered on 08/05/16 08:14; Start 08/02/16 at 21:00; Stop 09/01/16 at 20:59 Folic Acid (Folic Acid) 1 mg DAILY PO Last administered on 08/05/16 08:14; Start 08/03/16 at 09:00; Stop 09/02/16 at 08:59 Glucagon (Glucagon) 1 mg ASDIRECTED PRN SC SEE LABEL COMMENTS; Start 08/02/16 at 13:30; Stop 09/01/16 at 13:29 Glucose (Glucose) 16 GM ASDIRECTED PRN PO SEE LABEL COMMENTS; Start 08/02/16 at 13:30; Stop 09/01/16 at 13:29 Home Med (Med Rec Complete!) ASDIRECTED XX ; Start 08/02/16 at 13:45; Stop at 13:59; Status DC Insulin Human Lispro (HumaLOG INSULIN) See Protocol Table AC SC Last administered on 08/05/16 08:13; Start 08/02/16 at 17:30; Stop 09/01/16 at 17:29 Insulin Human Lispro (HumaLOG INSULIN) See Protocol Table QHS SC ; Start at 21:00; Stop 09/01/16 at 20:59 Magnesium Hydroxide (Milk Of Magnesia) 30 ml DAILYPRN PRN PO CONSTIPATION; Start 08/02/16 at 10:00; Stop 09/01/16 at 09:59 Metformin HCl (Glucophage) 1,000 mg BID@18 PO Last administered on 08/05/16 08:14; Start 08/02/16 at 18:00; Stop 09/01/16 at 17:59 Metoprolol Tartrate (Lopressor) 25 mg BID PO Last administered on 08/05/16 08: 14; Start 08/02/16 at 21:00; Stop 09/01/16 at 20:59 Multivitamins (Theragram-M) 1 tab DAILY PO Last administered on 08/05/16 08:14 ; Start 08/03/16 at 09:00; Stop 09/02/16 at 08:59 Polyethylene Glycol (Miralax) 1 pkt DAILY PRN PO CONSTIPATION; Start 08/02/16 at 10:00; Stop 09/01/16 at 09:59 Ramipril (Altace) 2.5 mg DAILY PO Last administered on 08/05/16 08:14; Start at 09:00; Stop 09/02/16 at 08:59 Senna (Senokot) 1 tab QHS PO Last administered on 08/03/16 20:49; Start at 21:00; Stop 09/01/16 at 20:59 Sodium Biphosphate/ Sodium Phosphate (Fleet Enema) 1 ea DAILYPRN PRN [place] CONSTIPATION; Start 08/02/16 at 10:00; Stop 09/01/16 at 09:59 Warfarin Sodium (Coumadin) 3.75 mg DAILY@17 PO ; Start 08/05/16 at 17:00; Stop at 06:00 Warfarin Sodium (Coumadin) 4 mg 1T@17 PO Last administered on 08/02/16 17:08; Start 08/02/16 at 17:00; Stop 08/02/16 at 17:01; Status DC HERBERT PHILIPPE MD August 05, 2016 11:47
[2016-08-05 14:00] VITALS: BP 131/75
[2016-08-05] MEDS: WARFARIN SOD 7.5 MG TAB PO SCH (17:45)
[2016-08-05] MEDS ORDERED: NITROGLYCERIN 0.4 MG SUBL TABLET SL STA (19:56)
[2016-08-05 20:00] VITALS: BP 144/78
[2016-08-05] MEDS ORDERED: ASPIRIN 81 MG CHEW TABLET PO ONE (20:00)
[2016-08-05 20:16] LABS: MEAN CORPUSCULAR HEMOGLOBIN 28.2 pg (27.0-33.0); MEAN CORPUSCULAR HGB CONC 32.1 g/dl (32.0-36.5); MEAN CORPUSCULAR VOLUME 87.8 fl (80.0-96.0)
[2016-08-05] MEDS: SENNA 8.6 MG TAB (SENOKOT) PO SCH (20:17)
[2016-08-05] MEDS: ATORVASTATIN 20 MG TAB PO SCH (20:17)
[2016-08-05 20:38] LABS: ALBUMIN 2.6 GM/DL (3.2-5.2); ALBUMIN/GLOBULIN RATIO 0.57 (1.00-1.93); BILIRUBIN,TOTAL 0.3 MG/DL (0.2-1.0); CALCIUM LEVEL 10.4 MG/DL (8.5-10.1); CREATININE FOR GFR 1.27 MG/DL (0.55-1.02); GLOMERULAR FILTRATION RATE 45.9 (>51); MAGNESIUM LEVEL 1.7 MG/DL (1.8-2.4); POTASSIUM SERUM 3.9 MEQ/L (3.5-5.1); TOTAL PROTEIN 7.2 GM/DL (6.4-8.2)
[2016-08-05 21:40] VITALS: BP 143/82
[2016-08-05] MEDS ORDERED: MAG SULF 1GM/100ML (MAG RUN) 1 GM in APPROPRIATE DILUENT 1 EA IV ONE (21:45)
[2016-08-06] VITALS: BP 139/83
--- NOTE | 2016-08-06 00:12 | ECGEPIP ---
Stationary ECG Study [facility] Test Date: 2016-08-05 Pat Name: KATHERIN JUNIOR Department: Room: [place] [address] Gender: F Clinic Office Manager: : [id number] Requested By: PRATIMA VASQUEZ Order Number: [id number] Reading MD: Ramesh Nagel Measurements Intervals [place] Rate: 84 P: 3 ME: 186 QRS: 66 QRSD: 126 T: 32 QT: 397 QTc: 470 Interpretive Statements SINUS RHYTHM RIGHT BUNDLE BRANCH BLOCK SEPTAL MYOCARDIAL INFARCTION, OF INDETERMINATE AGE. MAY BE RELATED TO THE RIGHT BUNDLE BRANCH BLOCK NON-SPECIFIC ST/T ABNORMALITY, CONSIDER ISCHEMIA NO PRIOR TRACING Electronically Signed On 08-06-2016 0:12:00 EDT by Ramesh Nagel
[2016-08-06 02:02] LABS: INR 1.68
[2016-08-06 04:00] VITALS: BP 137/93
[2016-08-06 07:25] VITALS: BP 125/69
[2016-08-06 07:42] LABS: MEAN CORPUSCULAR HEMOGLOBIN 27.6 pg (27.0-33.0); MEAN CORPUSCULAR HGB CONC 32.1 g/dl (32.0-36.5); MEAN CORPUSCULAR VOLUME 85.8 fl (80.0-96.0); RED CELL DISTRIBUTION WIDTH 14.5 % (11.5-14.5); WHITE BLOOD COUNT 13.1 K/mm3 (4.0-10.0)
[2016-08-06] MEDS: CHLORTHALIDONE 25 MG TAB PO SCH (08:46)
[2016-08-06] MEDS: MULTIVITAMINS/MINERALS THERAP 1 TAB PO SCH (08:47)
[2016-08-06] MEDS: DULoxetine 30 MG CAP (CYMBALTA) PO SCH (08:47)
[2016-08-06] MEDS: FOLIC ACID 1 MG TAB PO SCH (08:47)
[2016-08-06] MEDS: ASPIRIN 81 MG ENTERIC TAB PO SCH (08:47)
[2016-08-06] MEDS: RAMIPRIL 2.5 MG CAP PO SCH (08:47)
[2016-08-06] MEDS: ASCORBIC ACID 500 MG TAB PO SCH (08:48)
[2016-08-06] MEDS: metFORMIN (GLUCOPHAGE) 1000 MG TABLET PO SCH ×2 (08:48→17:50)
[2016-08-06] MEDS: FERROUS GLUCONATE 324 MG TAB PO SCH ×2 (08:48→19:59)
[2016-08-06] MEDS: METOPROLOL TART 25 MG TABLET PO SCH ×2 (08:48→20:00)
[2016-08-06] MEDS: HumaLOG INSULIN (NovoLOG) PER UNIT SC SCH ×4 (08:49→20:00)
[2016-08-06 09:04] LABS: ALBUMIN 2.5 GM/DL (3.2-5.2); ALBUMIN/GLOBULIN RATIO 0.56 (1.00-1.93); BILIRUBIN,TOTAL 0.3 MG/DL (0.2-1.0); CALCIUM LEVEL 9.9 MG/DL (8.5-10.1); CREATININE FOR GFR 1.27 MG/DL (0.55-1.02); GLOMERULAR FILTRATION RATE 45.9 (>51); POTASSIUM SERUM 4.4 MEQ/L (3.5-5.1)
--- NOTE | 2016-08-06 11:09 | IPN ---
DATE: 08/06/2016 Luisana was transferred from physical medicine and rehabilitation (PMR) with atypical chest pain. She had had a recent myocardial infarction (IA) and the chest pain felt different than the pain she had with her IA. She was admitted with a stroke with left hemiparesis, postoperative coronary artery bypass graft (CABG). She is pain free and has had no recurrence of the pain that led to her transfer from R. PHYSICAL EXAMINATION: Blood pressure 125/69, pulse of 82, respiratory rate 18, 99% oxygen saturation. Alert, conversant, in no distress. Lungs: Clear. Heart: Regular without murmur. Abdomen: Soft, nontender. No peripheral edema. LABORATORY: Troponins are flat. EKG shows no ischemia. Creatinine is stable. IMPRESSION: Noncardiac chest pain. PLAN: She can be transferred back to the physical medicine and rehabilitation unit.
[2016-08-06 12:00] VITALS: BP 141/73
--- NOTE | 2016-08-06 12:35 | REPUSA ---
Clinical history: Chest pain. Comparison: None. Findings: The mediastinum and cardiac silhouette are within normal limits. The lungs are clear. No pl eural effusion or pneumothorax is seen. The osseous structures and soft tissues are unremarkable. Impression: No acute disease.
[2016-08-06 14:00] VITALS: BP 126/70
[2016-08-06] MEDS: WARFARIN SOD 7.5 MG TAB PO SCH (17:49)
[2016-08-06] MEDS: SENNA 8.6 MG TAB (SENOKOT) PO SCH (19:59)
[2016-08-06] MEDS: ATORVASTATIN 20 MG TAB PO SCH (19:59)
[2016-08-06 20:00] VITALS: BP 155/90
--- NOTE | 2016-08-06 21:11 | HPE ---
DATE OF ADMISSION: 08/02/2016 PRIMARY CARE PHYSICIAN: Dr. Macias. SENIOR SOFTWARE DEVELOPMENT ENGINEER: Dr. Terry. CARDIOVASCULAR SURGEON: Dr. Gonzalez. PHYSICAL MEDICINE AND REHABILITATION ATTENDING: Dr. Shahbaz Antonio. CHIEF COMPLAINT: Chest pain. CODE STATUS: Full code. HISTORY OF PRESENT ILLNESS: Ms. Robledo is a 61-year-old female with multiple past medical history who is admitted to PM&R on 08/02/2016. Today the patient had two episodes of chest pain; one during the physical activities. However, the patient did not mention it to her family or nursing staff. The second one was this afternoon when she was working on a puzzle. The patient described the pain as sharp pain, 5/10, mostly stationary on the middle sternum. The patient expressed that she another episode of chest pain on Monday with activities. However, she did not notify nursing staff or her family members on that time. The patient is on rehabilitation after right cerebrovascular accident (CVA) with left hemiparesis secondary to embolic event from the postoperative coronary artery bypass graft (CABG) times six vessels, which was done on 07/25/2016. The patient expressed that two weeks ago, the patient developed chest pain with radiation to the left upper extremity. Electrocardiogram (EKG) revealed notable ST elevation, and the patient was transferred to [facility] on 07/19/2016. Cardiac catheterization revealed severe three-vessel disease and angioplasty and stent placement were not considered adequate, so the patient had the CABG times six, which was done by Dr. Gonzalez. Surgery was successful, and the patient was transferred to the intensive care unit (ICU), and then on the first postoperative day, she transferred to the floor. The patient's chest tubes were removed on postoperative day two, and she was started on Coumadin with INR goal of 1.5 to 1.9 to maintain the vein patency. It as noticed that patient developed left-sided weakness, left lower extremity more than left upper extremity, as well as unsteady gait with abnormal communication and mental alteration. CT showed atrophy and chronic small-vessel changes, but no bleeding of acute abnormalities was noted. The patient also had an episode of flareup of the right ankle tenderness which was felt to be due to gout, and was started on colchicine. The patient expressed that at this time she has diarrhea secondary to colchicine, and this is a chronic issue for her due to colchicine. The patient was started on aspirin 81 mg, as well as 4 mg of Coumadin per day for treatment of vein patency and clot prevention. The patient also has obstructive sleep apnea and uses continuous positive airway pressure (CPAP). According to the her and her family, since she has been admitted to the PM&R, her left upper and lower extremity function has improved tremendously. PAST MEDICAL HISTORY: 1. Asthma. 2. Arthritis. 3. Congestive heart failure. 4. Chronic kidney disease. 5. Diabetes type 2. 6. Gout. 7. Hypertension. 8. Uterine cancer. 9. Cerebrovascular accident (CVA). PAST SURGICAL HISTORY: 1. Median sternotomy. 2. VALADEZ. 3. CABG times six vessels. 4. Endoscopic 5. right saphenous vein harvest. ALLERGIES: The patient has allergy to TYLENOL, TETRACYCLINE and AZITHROMYCIN. FAMILY HISTORY: Father at 47 due to myocardial infarction (CA). Mother has hypertension and diabetes, and she is alive. The patient has five brothers and sisters. All of them have hypertension, hypercholesterolemia, type 2 diabetes, and her younger sister had an CA four months ago at age 52. 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 The patient drinks alcohol socially about two times a month. No recreational drug use. No recent travel. She has a dog and a parrot at home. She lives with her . HOME MEDICATIONS: - ProAir HFA two puffs inhaler every four hours as needed for shortness of breath - ascorbic acid 500 mg by mouth daily - aspirin 81 mg by mouth daily - atorvastatin calcium 40 mg by mouth at bedtime - chlorthalidone 25 mg by mouth daily - colchicine 0.6 mg by mouth twice a day - Daily-Manju one tablet by mouth daily - Colace 100 mg by mouth twice a day as needed for constipation - Cymbalta 60 mg by mouth daily - ferrous gluconate 224 mg by mouth twice a day - folic acid 1 mg by mouth daily - metformin 1000 mg by mouth twice a day Monday, Monday - metoprolol 25 mg by mouth twice a day - ramipril 2.5 mg by mouth daily - warfarin 4 mg by mouth REVIEW OF SYSTEMS: GENERAL: The patient denies fevers, chills, night sweats, weight loss, weight gain. HEENT: The patient denies headache, lightheadedness or dizziness. The patient denies acute vision or hearing changes. The patient denies problem with chewing food or sinusitis. NECK: The patient denies lumps, bumps, or decreased range of motion of her neck. CHEST: The patient has chest pain mostly located at the mediastinum with no radiation. The patient describes the pain as sharp, achy pain. At the start was 5/10; however, it has decreased to 3/10. The patient denies palpitations, racing or skipping heartbeat. LUNGS: The patient denies shortness of breath. No coughing. ABDOMEN: The patient denies abdominal pain, nausea, vomiting, diarrhea, constipation, melena, hematochezia, or hemoptysis. NEUROLOGIC: The patient has CVA with the left upper and lower extremity weakness. However, the patient denies seizure-type activities. PHYSICAL EXAMINATION: VITAL SIGNS: Temperature 98.6, pulse 86, respiratory rate 18, blood pressure 144/78, pulse oximetry 96% on room air. Total intake from yesterday 1800, total balance was +1800. GENERAL APPEARANCE: The patient was lying in bed in no acute distress. The patient was alert, awake, oriented to time, place, and person. HEENT: Normocephalic, atraumatic. Pupils are equal, round. Mucus is moist. NECK: Soft, supple. No lymphadenopathy, no thyromegaly. HEART: The patient has regular rate and rhythm. Normal S1, S2. CHEST: The patient has healing sternotomy incision without erythema, edema or drainage. Surgical site is clean and the patient has mild pain in that area which is appropriate to the surgical site. LUNGS: Clear breath sounds bilaterally. Good air movement. No wheezes, rales, or rhonchi were noticed. ABDOMEN: Soft, obese. Positive bowel sounds in all quadrants. EXTREMITIES: The patient has a good range of motion in both upper and lower extremities. The patient has normal strength 5/5. 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 The patient has a small purple-blue ecchymosis on the left upper extremity and possibly secondary to intravenous (IV). NEUROLOGIC: Cranial nerves II through XII are intact. No focal deficiencies. The patient is awake, alert, and oriented to time, place, and person. The patient has normal communication, as well as making sentences and using words. PSYCHIATRIC: The patient is cooperative and pleasant, in a good mood. LABORATORY DATA: White blood cells 13, red blood cells 3.32, hemoglobin 9.4, hematocrit 29.2, MCV 87.8, MCH 28.2, MCHC 32.1, RDW 14, platelets 519. PT 19, INR 1.58. Sodium 137, potassium 3.9, chloride 103, carbon dioxide 25, anion gap 9, BUN 28, creatinine 1.27, glomerular filtration rate 45.9, fasting glucose 122, calcium 10.4, magnesium 1.7. Total bilirubin 0.3, AST 17, ALT 19, alkaline phosphatase 175. Total protein 7.2, albumin 2.6. IMAGING: Chest x-ray result is pending at this time. EKG result is pending at this time. ASSESSMENT AND PLAN: 1. Angina. Patient has extended risk factor as well as having cardiac procedure (CABG) recently. I ordered cardiac marker and the result is pending at this time. Also, I have ordered EKG, chest x-ray, as well as labs are pending. I also gave one dose of aspirin 81 mg and nitroglycerin 0.4 mg which the patient expressed that after nitroglycerin, her chest pain was gone. I will transfer her to progressive care unit (PCU). 2. Hypomagnesemia. I gave one dose of magnesium run. we will check the magnesium level again tomorrow. 3. Atherosclerosis cardiovascular disease. Will continue patient on antihypertensive medications (Ramipril, metoprolol tartrate). Also, the patient is on atorvastatin and aspirin, along with Coumadin. Will continue monitoring the prothrombin time (PT) and international normalized ratio (INR), and the target INR range is 1.5 to 1.8. 4. Diabetes type two. The patient is on consistent carbohydrate diet. Also patient is on a sliding scale. 5. Diarrhea. This is possibly secondary to medication (colchicine). This is a chronic issue for the patient, and she has been experiencing diarrhea in the past with using colchicine. 6. Asthma. Well controlled. The patient is on an inhaler (albuterol). Also patient is on oxygen. 7. Deep venous thrombosis (DVT) prophylaxis. The patient is on warfarin. 8. Acute on chronic kidney disease. Today the patient's kidney function is better compared to yesterday. We will continue to monitor the patient's renal function. 9. Hyperlipidemia. The patient is on a statin. 10. Hypertension. The patient is on Ramipril, metoprolol tartrate. 11. Iron deficiency. The patient is on ferrous gluconate 324 mg by mouth twice a day. 12. Anemia. This is possibly secondary to surgery versus iron deficiency. The patient is on ferrous gluconate. patient had both colonoscopy and EGD several years ago which were negative. My preceptor for this patient encounter was Dr. Syed Rudd. The preceptor was physically present in the building during the encounter and was fully available as needed. All aspects of the patient interview, examination, medical decision making process, and medical care plan development were reviewed and approved by the preceptor. The preceptor is aware and concurs with the plan as stated in the body of this note and will attest to such by his/her co-signature. KIERAN
[2016-08-07 06:00] VITALS: BP 136/73
[2016-08-07 06:15] LABS: BASO # 0.1 K/mm3 (0.0-0.2); BASO % 0.8 % (0.0-1.0); EOS # 1.1 K/mm3 (0.0-0.50); EOS % 7.5 % (0.0-3.0); LARGE UNSTAINED CELL # 0.3 K/mm3 (0.0-0.4); LARGE UNSTAINED CELL % 1.8 % (0.0-4.0); LYMPH # 3.3 K/mm3 (1.5-4.5); LYMPH % 20.9 % (24.0-44.0); MEAN CORPUSCULAR HGB CONC 32.9 g/dl (32.0-36.5); MEAN CORPUSCULAR VOLUME 84.9 fl (80.0-96.0); MONO # 0.7 K/mm3 (0.0-0.8); MONO % 4.5 % (0.0-5.0); NEUTROPHILS # 9.5 K/mm3 (1.8-7.7); NEUTROPHILS % 64.5 % (36.0-66.0); PLATELET COUNT, AUTOMATED 560 k/mm3 (150-450); RED CELL DISTRIBUTION WIDTH 14.5 % (11.5-14.5); WHITE BLOOD COUNT 14.6 K/mm3 (4.0-10.0)
[2016-08-07 06:24] LABS: INR 1.61
[2016-08-07 06:44] LABS: ALBUMIN 2.5 GM/DL (3.2-5.2); ALBUMIN/GLOBULIN RATIO 0.48 (1.00-1.93); BILIRUBIN,TOTAL 0.3 MG/DL (0.2-1.0); CALCIUM LEVEL 10.2 MG/DL (8.5-10.1); CREATININE FOR GFR 1.23 MG/DL (0.55-1.02); GLOMERULAR FILTRATION RATE 47.6 (>51); MAGNESIUM LEVEL 1.7 MG/DL (1.8-2.4); POTASSIUM SERUM 4.2 MEQ/L (3.5-5.1); TOTAL PROTEIN 7.7 GM/DL (6.4-8.2)
[2016-08-07] MEDS: metFORMIN (GLUCOPHAGE) 1000 MG TABLET PO SCH ×2 (07:36→17:02)
[2016-08-07] MEDS: HumaLOG INSULIN (NovoLOG) PER UNIT SC SCH ×4 (07:36→20:50)
[2016-08-07] MEDS: RAMIPRIL 2.5 MG CAP PO SCH (09:03)
[2016-08-07] MEDS: CHLORTHALIDONE 25 MG TAB PO SCH (09:03)
[2016-08-07] MEDS: FOLIC ACID 1 MG TAB PO SCH (09:04)
[2016-08-07] MEDS: FERROUS GLUCONATE 324 MG TAB PO SCH ×2 (09:04→20:49)
[2016-08-07] MEDS: DULoxetine 30 MG CAP (CYMBALTA) PO SCH (09:04)
[2016-08-07] MEDS: ASPIRIN 81 MG ENTERIC TAB PO SCH (09:04)
[2016-08-07] MEDS: ASCORBIC ACID 500 MG TAB PO SCH (09:04)
[2016-08-07] MEDS: MULTIVITAMINS/MINERALS THERAP 1 TAB PO SCH (09:05)
[2016-08-07] MEDS: METOPROLOL TART 25 MG TABLET PO SCH ×2 (09:05→20:50)
[2016-08-07 14:00] VITALS: BP 129/75
[2016-08-07] MEDS: WARFARIN SOD 7.5 MG TAB PO SCH (17:02)
[2016-08-07 20:00] VITALS: BP 130/73
[2016-08-07] MEDS: ATORVASTATIN 20 MG TAB PO SCH (20:49)
[2016-08-07] MEDS: SENNA 8.6 MG TAB (SENOKOT) PO SCH (20:50)
[2016-08-07 21:45] VITALS: BP 130/73
[2016-08-07] MEDS ORDERED: ALPRAZolam 0.25 MG TAB PO SCH (22:30)
[2016-08-07] MEDS ORDERED: ALPRAZolam 0.25 MG TAB PO PRN (22:30)
[2016-08-08 06:00] VITALS: BP 131/76
[2016-08-08 06:53] LABS: MEAN CORPUSCULAR HEMOGLOBIN 27.5 pg (27.0-33.0); MEAN CORPUSCULAR HGB CONC 31.7 g/dl (32.0-36.5); MEAN CORPUSCULAR VOLUME 86.9 fl (80.0-96.0); RED CELL DISTRIBUTION WIDTH 14.6 % (11.5-14.5)
[2016-08-08 07:07] LABS: INR 1.84
[2016-08-08 07:21] LABS: ALBUMIN 2.6 GM/DL (3.2-5.2); ALBUMIN/GLOBULIN RATIO 0.51 (1.00-1.93); BILIRUBIN,TOTAL 0.3 MG/DL (0.2-1.0); CALCIUM LEVEL 10.6 MG/DL (8.5-10.1); CREATININE FOR GFR 1.29 MG/DL (0.55-1.02); MAGNESIUM LEVEL 1.8 MG/DL (1.8-2.4); POTASSIUM SERUM 4.2 MEQ/L (3.5-5.1); TOTAL PROTEIN 7.7 GM/DL (6.4-8.2)
[2016-08-08] MEDS: FERROUS GLUCONATE 324 MG TAB PO SCH ×2 (09:12→20:49)
[2016-08-08] MEDS: HumaLOG INSULIN (NovoLOG) PER UNIT SC SCH ×4 (09:12→20:44)
[2016-08-08] MEDS: FOLIC ACID 1 MG TAB PO SCH (09:12)
[2016-08-08] MEDS: DULoxetine 30 MG CAP (CYMBALTA) PO SCH (09:12)
[2016-08-08] MEDS: CHLORTHALIDONE 25 MG TAB PO SCH (09:12)
[2016-08-08] MEDS: ASPIRIN 81 MG ENTERIC TAB PO SCH (09:12)
[2016-08-08] MEDS: metFORMIN (GLUCOPHAGE) 1000 MG TABLET PO SCH ×2 (09:12→17:04)
[2016-08-08] MEDS: MULTIVITAMINS/MINERALS THERAP 1 TAB PO SCH (09:12)
[2016-08-08] MEDS: ASCORBIC ACID 500 MG TAB PO SCH (09:12)
[2016-08-08] MEDS: RAMIPRIL 2.5 MG CAP PO SCH (09:14)
[2016-08-08] MEDS: METOPROLOL TART 25 MG TABLET PO SCH ×2 (09:15→20:50)
--- NOTE | 2016-08-08 12:26 | IPNPDOC ---
Subjective Date Seen The patient was seen on 08/08/16. Subjective Chief Complaint/HPI The patient is a 61-year-old female admitted with a reason for visit of Stroke. Events since last encounter Pt with no further CP. States overall she is feeling better. Reports she has had diarrhea. Pulmonary: Denies: Dyspnea, Cough Cardiovascular: Denies: Chest Pain, Palpitations, Orthopnea, Paroxysmal Noc. Dyspnea, Lt Headedness Gastrointestinal: Denies: Nausea, Vomiting, Abdominal Pain, Diarrhea, Constipation Genitourinary: Denies: Dysuria, Frequency, Incontinence Objective Physical Examination General Exam: Positive: Alert Eye Exam: Positive: PERRLA ENT Exam: Positive: Atraumatic Neck Exam: Positive: Supple Chest Exam: Positive: Clear to auscultation, Normal air movement Heart Exam: Positive: Rate Normal, Regular Rhythm, Normal S1, Normal S2, Negative: Murmurs, Rubs Skin Exam: Positive: Nl turgor and temperature Assessment /Plan Problems (1) CVA (cerebral vascular accident) Status: Acute Problem Text: * Mgmt as per ARU. * (2) HTN (hypertension) Status: Chronic Problem Text: * Altace. (3) Hyperlipemia Status: Chronic Problem Text: * Lipitor (4) CHF (congestive heart failure) Status: Chronic Problem Text: * Chlorthalidone. * No signs of fluid overload. 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 (6) Chronic kidney disease (CKD) Status: Chronic (7) Anemia Status: Chronic Problem Text: * Hgb 9.5 * Cont Fe supplement. (8) S/P CABG x 6 Status: Chronic Problem Text: * No further CP. * CIP/Trop neg. * Was felt to be non cardiac CP. * ASA/Statin/Lopressor. * Coumadin with goal INR 1.5-1.9 * Outpt f/u with cardiology. (9) Diarrhea Problem Text: * GI panel requested. (10) KAYLA (obstructive sleep apnea) Problem Text: * CPAP (11) Gout Problem Text: * S/P tx with colchicine, finished 08/04/16. * Monitor. Plan/VTE VTE Prophylaxis Ordered?: Yes (Pt on Coumadin. ) VS, I&O, 24H, Fishbone Vital Signs/I&O Vital Signs Date Time Temp Pulse Resp B/P (MAP) Pulse Ox O2 Delivery O2 Flow Rate FiO2 08/08/16 09:15 72 136/78 08/08/16 09:00 Room Air 08/08/16 06:00 98.9 18 94 08/07/16 21:45 2.0 I&O- Last 24 Hours up to 6 AM 08/08/16 06:00 Intake Total 1140 ml Balance 1140 ml Laboratory Data 24H LABS Laboratory Tests 2 08/07/16 16:37: Bedside Glucose (Misc Panel) 129H 08/07/16 20:11: Bedside Glucose (Misc Panel) 136H 08/08/16 05:50: Bedside Glucose (Misc Panel) 124H 08/08/16 06:41: Prothrombin Time 21.3H, Prothromb Time International Ratio 1.84, Anion Gap 9, Glomerular Filtration Rate 45.0L, Blood Urea Nitrogen 30H, Creatinine 1.29H, Sodium Level 137, Potassium Level 4.2, Chloride Level 104, Carbon Dioxide Level 24, Calcium Level 10.6H, Aspartate Amino Transf (AST/SGOT) 14L, Alanine Aminotransferase (ALT/SGPT) 22, Alkaline Phosphatase 153H, Total Bilirubin 0.3, Total Protein 7.7, Albumin 2.6L, Magnesium Level 1.8, Albumin/Globulin Ratio 0.51L 08/08/16 11:57: Bedside Glucose (Misc Panel) 175H CBC/BMP Laboratory Tests 08/08/16 06:41 Red Blood Count 3.47 L, Mean Corpuscular Volume 86.9, Mean Corpuscular Hemoglobin 27.5, Mean Corpuscular Hemoglobin Concent 31.7 L, Red Cell Distribution Width 14.6 H, Calcium Level 10.6 H, Aspartate Amino Transf (AST/ SGOT) 14 L, Alanine Aminotransferase (ALT/SGPT) 22, Alkaline Phosphatase 153 H, Total Bilirubin 0.3, Total Protein 7.7, Albumin 2.6 L Kelly Garcia August 08, 2016 12:26
--- NOTE | 2016-08-08 12:57 | IPNPDOC ---
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 Patient is also much less impulsive. She reports pain along the sternal incision is better. Overall pain is in good control, no nausea/fevers/chills/other problems. Patient reports bowel and bladder working well. Her Cardiac W/U this weekend was negative leaving the sternal incision as the likely source of increased chest pain this rainy weekend. ALLERGIES: See Below MEDICATIONS: Reviewed, see below. OBJECTIVE: VITAL SIGNS: Please see below. PHYSICAL EXAMINATION: GENERAL: Middle-aged white female who is alert and seems to be doing much better today with both receptive and expressive language nearly gone in general conversation. Impulsiveness and appropriateness and complexity of speech have all improved. HEENT: Normocephalic/atraumatic. CARDIOVASCULAR: Regular rate and rhythm with normal S1-S2. Bilateral radial pulses are good. LUNGS: All hurley are clear to auscultation with no wheezes rales or rhonchi appreciated. ABDOMEN: Obese, soft, nontender with normal bowel sounds in all quadrants. NEUROLOGICAL: Patient appears to be moving left upper and lower extremity better than Monday. SKIN: Along the sternal incision appears to be slightly darker than yesterday but no drainage with more cephalad prominence. Epigastric chest tube sites also doing well. LABORATORY DATA: Reviewed. Please see below. MICROBIOLOGY: Please see below. IMAGING: No new imaging. DVT prophylaxis ordered?: INR is 1.84 today up from 1.61 yesterday and 1.68 the day before on 3.75 mg per day. I will decrease tonight's dose to 2 mg and recheck INR in the morning. ASSESSMENT AND PLAN: 1. Rehabilitation of right CVA with left neglect/hemiparesis, aphasia and impulsiveness: Patient seems to sustained no injury from last night when she tried to get up from the commode and transfer herself independently to bed. She does however seem more where of the need for safety today but we need to continue to keep a close eye on her as some impulsiveness remains. He is very committed to participating in therapies and benefiting from them I feel already. Discharge date was anticipated to be around August 16 through the , however with the marked improvement in cognition that may be a diffuse process such as anoxia clearing team plan is for target discharge to home with homecare on 08/12/16. 2. CABG 6 vessels: Fish without blood pressure but high this morning at 168/72 ' but good oxygenation on room air. Skin shows good color and patient's endurance appears to be tolerating the therapy well. Her postoperative and anemia also showing some slight improvement with an H&H of 9.4/29.9%. There is some elevation of white count now 13.3 from unclear stressor with patient being afebrile. Her incisions are doing well, though engaging patient up last night there is always concerns about a stress and loading on the sternum. We will need to keep a close eye on this and the slight darkish color along the incision line. 3. Obstructive sleep apnea: We need to encourage patient to use her CPAP. This should help with blood pressure and decrease some of the load on her sternum. 4. Acute medical transfer: The patient complaints of chest pain the hospitalists though it was prudent to transfer patient to PACU for cardiac evaluation. However the record does not show the patient leaving this carrera as discharge order and readmission orders along with the appropriate physician documentation was not completed. The medical workup done during the evening of throughout patient's return to the ARU the evening of 08/06 is not a part of the IRF admission, but an appropriate and necessary medical evaluation for potentially life threatening sequelae of of her atherosclerotic cardiovascular disease/pulmonary disease. Fortunately, the evaluation was negative for these more dire sources of chest discomfort. TIME SPENT: Chart Review, examination and documentation greater than 35 minutes. Allergies Coded Allergies: Erythromycin (Verified Allergy, Intermediate, Welts, 08/02/16) Welts Tetracyclines & Related (Verified Allergy, Intermediate, Welts, 08/02/16) Welts Acetaminophen (Verified Adverse Reaction, Unknown, tinitus, 08/02/16) Also dizziness Vital Signs Vital Signs Date Time Temp Pulse Resp B/P (MAP) Pulse Ox O2 Delivery O2 Flow Rate FiO2 08/08/16 09:15 72 136/78 08/08/16 09:00 Room Air 08/08/16 06:00 98.9 18 94 08/07/16 21:45 2.0 Laboratory Data CBC/BMP Laboratory Tests 08/08/16 06:41 Red Blood Count 3.47 L, Mean Corpuscular Volume 86.9, Mean Corpuscular Hemoglobin 27.5, Mean Corpuscular Hemoglobin Concent 31.7 L, Red Cell Distribution Width 14.6 H, Calcium Level 10.6 H, Aspartate Amino Transf (AST/ SGOT) 14 L, Alanine Aminotransferase (ALT/SGPT) 22, Alkaline Phosphatase 153 H, Total Bilirubin 0.3, Total Protein 7.7, Albumin 2.6 L Labs 24H Laboratory Tests 2 08/07/16 16:37: Bedside Glucose (Misc Panel) 129H 08/07/16 20:11: Bedside Glucose (Misc Panel) 136H 08/08/16 05:50: Bedside Glucose (Misc Panel) 124H 08/08/16 06:41: Prothrombin Time 21.3H, Prothromb Time International Ratio 1.84, Anion Gap 9, Glomerular Filtration Rate 45.0L, Blood Urea Nitrogen 30H, Creatinine 1.29H, Sodium Level 137, Potassium Level 4.2, Chloride Level 104, Carbon Dioxide Level 24, Calcium Level 10.6H, Aspartate Amino Transf (AST/SGOT) 14L, Alanine Aminotransferase (ALT/SGPT) 22, Alkaline Phosphatase 153H, Total Bilirubin 0.3, Total Protein 7.7, Albumin 2.6L, Magnesium Level 1.8, Albumin/Globulin Ratio 0.51L 08/08/16 11:57: Bedside Glucose (Misc Panel) 175H Current Medications Current Medications Current Medications Al Hydrox/Mg Hydrox/Simethicone (Mylanta) 30 ml Q4HP PRN PO DYSPEPSIA; Start at 10:00; Stop 09/01/16 at 09:59 Albuterol Sulfate (Proventil, Ventolin Hfa) 2 puff Q4HP PRN INH SHORTNESS OF BREATH Last administered on 08/03/16 22:56; Start 08/02/16 at 10:30; Stop at 10:29 Alprazolam (Xanax) 0.25 mg QHSP PO ; Start 08/07/16 at 22:30; Stop 08/07/16 at 22: 30; Status DC Alprazolam (Xanax) 0.25 mg QHSP PRN PO ANXIETY Last administered on 08/08/16 00 :51; Start 08/07/16 at 22:30; Stop 08/14/16 at 22:29 Ascorbic Acid (Vitamin C) 500 mg DAILY PO Last administered on 08/08/16 09:12; Start 08/03/16 at 09:00; Stop 09/02/16 at 08:59 Aspirin (Ecotrin) 81 mg DAILY PO Last administered on 08/08/16 09:12; Start 08/03/16 at 09:00; Stop 09/02/16 at 08:59 Atorvastatin Calcium (Lipitor) 40 mg QHS PO Last administered on 08/07/16 20:49 ; Start 08/02/16 at 21:00; Stop 09/01/16 at 20:59 Chlorthalidone (Hygroton) 25 mg DAILY PO Last administered on 08/08/16 09:12; Start 08/03/16 at 09:00; Stop 09/02/16 at 08:59 Colchicine (Colcrys) 0.6 mg BID PO Last administered on 08/04/16 09:27; Start 08/02/16 at 21:00; Stop 08/04/16 at 12:00; Status DC Dextrose (Dextrose 50%) 25 ml ASDIRECTED PRN IV SEE LABEL COMMENTS; Start at 13:30; Stop 09/01/16 at 13:29 Duloxetine HCl (Cymbalta) 60 mg DAILY PO Last administered on 08/08/16 09:12; Start 08/03/16 at 09:00; Stop 09/02/16 at 08:59 Ferrous Gluconate (Fergon) 324 mg BID PO Last administered on 08/08/16 09:12; Start 08/02/16 at 21:00; Stop 09/01/16 at 20:59 Folic Acid (Folic Acid) 1 mg DAILY PO Last administered on 08/08/16 09:12; Start 08/03/16 at 09:00; Stop 09/02/16 at 08:59 Glucagon (Glucagon) 1 mg ASDIRECTED PRN SC SEE LABEL COMMENTS; Start 08/02/16 at 13:30; Stop 09/01/16 at 13:29 Glucose (Glucose) 16 GM ASDIRECTED PRN PO SEE LABEL COMMENTS; Start 08/02/16 at 13:30; Stop 09/01/16 at 13:29 Home Med (Med Rec Complete!) ASDIRECTED XX ; Start 08/02/16 at 13:45; Stop at 13:59; Status DC Insulin Human Lispro (HumaLOG INSULIN) See Protocol Table AC SC Last administered on 08/08/16 12:01; Start 08/02/16 at 17:30; Stop 09/01/16 at 17:29 Insulin Human Lispro (HumaLOG INSULIN) See Protocol Table QHS SC ; Start at 21:00; Stop 09/01/16 at 20:59 Magnesium Hydroxide (Milk Of Magnesia) 30 ml DAILYPRN PRN PO CONSTIPATION; Start 08/02/16 at 10:00; Stop 09/01/16 at 09:59 Metformin HCl (Glucophage) 1,000 mg BID@18 PO Last administered on 08/08/16 09:12; Start 08/02/16 at 18:00; Stop 09/01/16 at 17:59 Metoprolol Tartrate (Lopressor) 25 mg BID PO Last administered on 08/08/16 09: 15; Start 08/02/16 at 21:00; Stop 09/01/16 at 20:59 Multivitamins (Theragram-M) 1 tab DAILY PO Last administered on 08/08/16 09:12 ; Start 08/03/16 at 09:00; Stop 09/02/16 at 08:59 Nitroglycerin (Nitrostat (1/ 150)) 0.4 mg STAT STAT SL Last administered on 20:20; Start 08/05/16 at 19:56; Stop 08/05/16 at 19:59; Status DC Polyethylene Glycol (Miralax) 1 pkt DAILY PRN PO CONSTIPATION; Start 08/02/16 at 10:00; Stop 09/01/16 at 09:59 Ramipril (Altace) 2.5 mg DAILY PO Last administered on 08/08/16 09:14; Start at 09:00; Stop 09/02/16 at 08:59 Senna (Senokot) 1 tab QHS PO Last administered on 08/06/16 19:59; Start at 21:00; Stop 09/01/16 at 20:59 Sodium Biphosphate/ Sodium Phosphate (Fleet Enema) 1 ea DAILYPRN PRN RI CONSTIPATION; Start 08/02/16 at 10:00; Stop 09/01/16 at 09:59 Warfarin Sodium (Coumadin) 3.75 mg DAILY@17 PO Last administered on 08/07/16 17 :02; Start 08/05/16 at 17:00; Stop 08/08/16 at 06:01; Status DC Warfarin Sodium (Coumadin) 4 mg 1T@17 PO Last administered on 08/02/16 17:08; Start 08/02/16 at 17:00; Stop 08/02/16 at 17:01; Status DC HERBERT PHILIPPE MD August 08, 2016 12:56
[2016-08-08 14:00] VITALS: BP 135/77
[2016-08-08] MEDS ORDERED: WARFARIN SOD 2 MG TAB PO ONE (17:00)
[2016-08-08 20:00] VITALS: BP 159/90
[2016-08-08] MEDS: ATORVASTATIN 20 MG TAB PO SCH (20:49)
[2016-08-08] MEDS: SENNA 8.6 MG TAB (SENOKOT) PO SCH (20:51)
[2016-08-09 06:00] VITALS: BP 142/80
[2016-08-09 06:58] LABS: MEAN CORPUSCULAR HEMOGLOBIN 27.7 pg (27.0-33.0); MEAN CORPUSCULAR VOLUME 86.5 fl (80.0-96.0); RED CELL DISTRIBUTION WIDTH 14.4 % (11.5-14.5); WHITE BLOOD COUNT 13.3 K/mm3 (4.0-10.0)
[2016-08-09 07:05] LABS: INR 1.82
[2016-08-09 07:19] LABS: ALBUMIN 2.7 GM/DL (3.2-5.2); ALBUMIN/GLOBULIN RATIO 0.54 (1.00-1.93); BILIRUBIN,TOTAL 0.3 MG/DL (0.2-1.0); CALCIUM LEVEL 10.6 MG/DL (8.5-10.1); CREATININE FOR GFR 1.2 MG/DL (0.55-1.02); MAGNESIUM LEVEL 1.7 MG/DL (1.8-2.4); TOTAL PROTEIN 7.7 GM/DL (6.4-8.2)
[2016-08-09] MEDS: HumaLOG INSULIN (NovoLOG) PER UNIT SC SCH ×4 (08:41→21:00)
[2016-08-09] MEDS: CHLORTHALIDONE 25 MG TAB PO SCH (08:41)
[2016-08-09] MEDS: METOPROLOL TART 25 MG TABLET PO SCH ×2 (08:41→21:15)
[2016-08-09] MEDS: metFORMIN (GLUCOPHAGE) 1000 MG TABLET PO SCH ×2 (08:41→17:11)
[2016-08-09] MEDS: FERROUS GLUCONATE 324 MG TAB PO SCH ×2 (08:41→21:14)
[2016-08-09] MEDS: ASPIRIN 81 MG ENTERIC TAB PO SCH (08:42)
[2016-08-09] MEDS: DULoxetine 30 MG CAP (CYMBALTA) PO SCH (08:42)
[2016-08-09] MEDS: MULTIVITAMINS/MINERALS THERAP 1 TAB PO SCH (08:42)
[2016-08-09] MEDS: FOLIC ACID 1 MG TAB PO SCH (08:42)
[2016-08-09] MEDS: RAMIPRIL 2.5 MG CAP PO SCH (08:42)
[2016-08-09] MEDS: ASCORBIC ACID 500 MG TAB PO SCH (08:42)
--- NOTE | 2016-08-09 10:55 | IPNPDOC ---
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 Patient overall feeling better and without complaint today except for lower extremity/foot edema causing some gaining discomfort. ALLERGIES: See Below MEDICATIONS: Reviewed, see below. OBJECTIVE: VITAL SIGNS: Please see below. PHYSICAL EXAMINATION: GENERAL: Overweight middle-aged white female who is alert and oriented to person , place, and progressively more time and situation. Patient is in no acute distress. HEENT: Normocephalic/atraumatic, no appreciable drooping. CARDIOVASCULAR: Regular rate and rhythm with normal S1-S2. Good peripheral perfusion in all extremities. LUNGS: All hurley clear to auscultation. ABDOMEN: Normal bowel sounds in all quadrants. NEUROLOGICAL: Continuing to improve cognition and communication. Gaiting is improving as is balance. SKIN: Less darkness around chest incision. LABORATORY DATA: Reviewed. Please see below. MICROBIOLOGY: Please see below. DVT prophylaxis ordered?: INR 1.86 today will prescribe 3 mg of Coumadin tonight and recheck INR in the morning. ASSESSMENT AND PLAN: 1. Rehabilitation of right CVA with left hemiparesis: Patient continuing to improve with anticipated discharge this Monday to home care with home PT/OT and speech therapies. 2. Congestive heart failure/lower extremity edema: I have discussed this with Ms. Garcia who will review for possible diuretic treatment. 3. CABG 6 vessels: Incisions are healing up and no angina has been noted by the patient. However likely some CHF is ongoing. TIME SPENT: Chart Review, examination and documentation approximately 25 minutes. Allergies Coded Allergies: Erythromycin (Verified Allergy, Intermediate, Welts, 08/02/16) Welts Tetracyclines & Related (Verified Allergy, Intermediate, Welts, 08/02/16) Welts Acetaminophen (Verified Adverse Reaction, Unknown, tinitus, 08/02/16) Also dizziness Vital Signs Vital Signs Date Time Temp Pulse Resp B/P (MAP) Pulse Ox O2 Delivery O2 Flow Rate FiO2 08/09/16 08:42 142/80 08/09/16 08:41 79 08/09/16 08:00 Room Air 08/09/16 06:00 98.5 16 97 08/07/16 21:45 2.0 Laboratory Data CBC/BMP Laboratory Tests 08/09/16 06:37 Red Blood Count 3.58 L, Mean Corpuscular Volume 86.5, Mean Corpuscular Hemoglobin 27.7, Mean Corpuscular Hemoglobin Concent 32.0, Red Cell Distribution Width 14.4, Calcium Level 10.6 H, Aspartate Amino Transf (AST/SGOT ) 18, Alanine Aminotransferase (ALT/SGPT) 24, Alkaline Phosphatase 182 H, Total Bilirubin 0.3, Total Protein 7.7, Albumin 2.7 L Labs 24H Laboratory Tests 2 08/08/16 11:57: Bedside Glucose (Misc Panel) 175H 08/08/16 16:43: Bedside Glucose (Misc Panel) 136H 08/08/16 20:21: Bedside Glucose (Misc Panel) 141H 08/09/16 06:37: Prothrombin Time 21.2H, Prothromb Time International Ratio 1.82, Anion Gap 9, Glomerular Filtration Rate 49.0L, Blood Urea Nitrogen 30H, Creatinine 1.20H, Sodium Level 136, Potassium Level 4.0, Chloride Level 104, Carbon Dioxide Level 23, Calcium Level 10.6H, Aspartate Amino Transf (AST/SGOT) 18, Alanine Aminotransferase (ALT/SGPT) 24, Alkaline Phosphatase 182H, Total Bilirubin 0.3, Total Protein 7.7, Albumin 2.7L, Magnesium Level 1.7L, Albumin/Globulin Ratio 0.54L Current Medications Current Medications Current Medications Al Hydrox/Mg Hydrox/Simethicone (Mylanta) 30 ml Q4HP PRN PO DYSPEPSIA; Start at 10:00; Stop 09/01/16 at 09:59 Albuterol Sulfate (Proventil, Ventolin Hfa) 2 puff Q4HP PRN INH SHORTNESS OF BREATH Last administered on 08/03/16 22:56; Start 08/02/16 at 10:30; Stop at 10:29 Alprazolam (Xanax) 0.25 mg QHSP PO ; Start 08/07/16 at 22:30; Stop 08/07/16 at 22: 30; Status DC Alprazolam (Xanax) 0.25 mg QHSP PRN PO ANXIETY Last administered on 08/08/16 00 :51; Start 08/07/16 at 22:30; Stop 08/09/16 at 08:20; Status DC Ascorbic Acid (Vitamin C) 500 mg DAILY PO Last administered on 08/09/16 08:42; Start 08/03/16 at 09:00; Stop 09/02/16 at 08:59 Aspirin (Ecotrin) 81 mg DAILY PO Last administered on 08/09/16 08:42; Start 08/03/16 at 09:00; Stop 09/02/16 at 08:59 Atorvastatin Calcium (Lipitor) 40 mg QHS PO Last administered on 08/08/16 20:49 ; Start 08/02/16 at 21:00; Stop 09/01/16 at 20:59 Chlorthalidone (Hygroton) 25 mg DAILY PO Last administered on 08/09/16 08:41; Start 08/03/16 at 09:00; Stop 09/02/16 at 08:59 Colchicine (Colcrys) 0.6 mg BID PO Last administered on 08/04/16 09:27; Start 08/02/16 at 21:00; Stop 08/04/16 at 12:00; Status DC Dextrose (Dextrose 50%) 25 ml ASDIRECTED PRN IV SEE LABEL COMMENTS; Start at 13:30; Stop 09/01/16 at 13:29 Duloxetine HCl (Cymbalta) 60 mg DAILY PO Last administered on 08/09/16 08:42; Start 08/03/16 at 09:00; Stop 09/02/16 at 08:59 Ferrous Gluconate (Fergon) 324 mg BID PO Last administered on 08/09/16 08:41; Start 08/02/16 at 21:00; Stop 09/01/16 at 20:59 Folic Acid (Folic Acid) 1 mg DAILY PO Last administered on 08/09/16 08:42; Start 08/03/16 at 09:00; Stop 09/02/16 at 08:59 Glucagon (Glucagon) 1 mg ASDIRECTED PRN SC SEE LABEL COMMENTS; Start 08/02/16 at 13:30; Stop 09/01/16 at 13:29 Glucose (Glucose) 16 GM ASDIRECTED PRN PO SEE LABEL COMMENTS; Start 08/02/16 at 13:30; Stop 09/01/16 at 13:29 Home Med (Med Rec Complete!) ASDIRECTED XX ; Start 08/02/16 at 13:45; Stop at 13:59; Status DC Insulin Human Lispro (HumaLOG INSULIN) See Protocol Table AC SC Last administered on 08/09/16 08:41; Start 08/02/16 at 17:30; Stop 09/01/16 at 17:29 Insulin Human Lispro (HumaLOG INSULIN) See Protocol Table QHS SC ; Start at 21:00; Stop 09/01/16 at 20:59 Magnesium Hydroxide (Milk Of Magnesia) 30 ml DAILYPRN PRN PO CONSTIPATION; Start 08/02/16 at 10:00; Stop 09/01/16 at 09:59 Metformin HCl (Glucophage) 1,000 mg BID@18 PO Last administered on 08/09/16 08:41; Start 08/02/16 at 18:00; Stop 09/01/16 at 17:59 Metoprolol Tartrate (Lopressor) 25 mg BID PO Last administered on 08/09/16 08: 41; Start 08/02/16 at 21:00; Stop 09/01/16 at 20:59 Multivitamins (Theragram-M) 1 tab DAILY PO Last administered on 08/09/16 08:42 ; Start 08/03/16 at 09:00; Stop 09/02/16 at 08:59 Nitroglycerin (Nitrostat (1/ 150)) 0.4 mg STAT STAT SL Last administered on 20:20; Start 08/05/16 at 19:56; Stop 08/05/16 at 19:59; Status DC Polyethylene Glycol (Miralax) 1 pkt DAILY PRN PO CONSTIPATION; Start 08/02/16 at 10:00; Stop 09/01/16 at 09:59 Ramipril (Altace) 2.5 mg DAILY PO Last administered on 08/09/16 08:42; Start at 09:00; Stop 09/02/16 at 08:59 Senna (Senokot) 1 tab QHS PO Last administered on 08/06/16 19:59; Start at 21:00; Stop 09/01/16 at 20:59 Sodium Biphosphate/ Sodium Phosphate (Fleet Enema) 1 ea DAILYPRN PRN [place] CONSTIPATION; Start 08/02/16 at 10:00; Stop 09/01/16 at 09:59 Warfarin Sodium (Coumadin) 3.75 mg DAILY@17 PO Last administered on 08/07/16 17 :02; Start 08/05/16 at 17:00; Stop 08/08/16 at 06:01; Status DC Warfarin Sodium (Coumadin) 4 mg 1T@17 PO Last administered on 08/02/16 17:08; Start 08/02/16 at 17:00; Stop 08/02/16 at 17:01; Status DC HERBERT PHILIPPE MD August 09, 2016 10:55
[2016-08-09] MEDS ORDERED: FUROSEMIDE 20 MG TAB PO ONE (12:45)
--- NOTE | 2016-08-09 12:48 | IPNPDOC ---
Subjective Date Seen The patient was seen on 08/09/16. Subjective Chief Complaint/HPI The patient is a 61-year-old female admitted with a reason for visit of Stroke. Events since last encounter I am requested to see the patient regarding lower extremity edema. Patient denies any further chest pain. She states she has been noticing lower extremity edema mostly in her feet. She denies any shortness of breath, orthopnea, PND. She states at home she uses Lasix 20 mg daily as needed for lower extremity edema. ENT: Denies: Head Aches, Ear Pain, Dysphagia Pulmonary: Denies: Dyspnea, Cough Cardiovascular: Denies: Chest Pain, Palpitations, Orthopnea, Paroxysmal Noc. Dyspnea, Lt Headedness Objective Physical Examination General Exam: Positive: Alert Eye Exam: Positive: PERRLA ENT Exam: Positive: Atraumatic Neck Exam: Positive: Supple, Negative: JVD (JVD not visible reclined in chair. ) Chest Exam: Positive: Clear to auscultation, Normal air movement, Negative: Rales, Rhonchi, Wheezing Heart Exam: Positive: Rate Normal, Regular Rhythm, Normal S1, Normal S2, Negative: Murmurs, Rubs Extremity Exam: Positive: Edema (trace pedal) Skin Exam: Positive: Nl turgor and temperature Assessment /Plan Problems (1) CVA (cerebral vascular accident) Status: Acute Problem Text: * Mgmt as per ARU. * (2) HTN (hypertension) Status: Chronic Problem Text: * Altace. (3) Hyperlipemia Status: Chronic Problem Text: * Lipitor (4) CHF (congestive heart failure) Status: Chronic Problem Text: * CXR 08/05/16 NAD. * No JVD/inspiratory rales. Trace pedal edema- Pt states is improved from yesterday but still there. Better since she elevated her legs today. * Request I/O, Daily weight. * Pt states unable to wear TEDS * LALITO diet. Recommended modest FR Pt states she drinks alot of fluids). * Continue Chlorthalidone 25 mg daily. * Add BNP to labs. * Lasix 20 mg po x 1 today. * Monitor. 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 (6) Chronic kidney disease (CKD) Status: Chronic Problem Text: * Scr stable, 1.2 (7) Anemia Status: Chronic Problem Text: * Hgb 9.5 * Cont Fe supplement. (8) S/P CABG x 6 Status: Chronic Problem Text: * No further CP. * CIP/Trop neg. * Was felt to be non cardiac CP. * ASA/Statin/Lopressor. * Coumadin with goal INR 1.5-1.9 * Outpt f/u with cardiology. (9) Diarrhea Problem Text: * GI panel requested. Pending. (10) KAYLA (obstructive sleep apnea) Problem Text: * CPAP (11) Gout Problem Text: * S/P tx with colchicine, finished 08/04/16. * Recheck Uric acid. Plan/VTE VTE Prophylaxis Ordered?: Yes (Pt on Coumadin. ) Disposition as per ARU. VS, I&O, 24H, [facility] Vital Signs/I&O Vital Signs Date Time Temp Pulse Resp B/P (MAP) Pulse Ox O2 Delivery O2 Flow Rate FiO2 08/09/16 08:42 142/80 08/09/16 08:41 79 08/09/16 08:00 Room Air 08/09/16 06:00 98.5 16 97 08/07/16 21:45 2.0 I&O- Last 24 Hours up to 6 AM 08/09/16 05:59 Intake Total 1440 ml Balance 1440 ml Laboratory Data 24H LABS Laboratory Tests 2 08/08/16 16:43: Bedside Glucose (Misc Panel) 136H 08/08/16 20:21: Bedside Glucose (Misc Panel) 141H 08/09/16 06:37: Prothrombin Time 21.2H, Prothromb Time International Ratio 1.82, Anion Gap 9, Glomerular Filtration Rate 49.0L, Blood Urea Nitrogen 30H, Creatinine 1.20H, Sodium Level 136, Potassium Level 4.0, Chloride Level 104, Carbon Dioxide Level 23, Calcium Level 10.6H, Aspartate Amino Transf (AST/SGOT) 18, Alanine Aminotransferase (ALT/SGPT) 24, Alkaline Phosphatase 182H, Total Bilirubin 0.3, Total Protein 7.7, Albumin 2.7L, Magnesium Level 1.7L, Albumin/Globulin Ratio 0.54L 08/09/16 11:22: Bedside Glucose (Misc Panel) 122H CBC/BMP Laboratory Tests 08/09/16 06:37 Red Blood Count 3.58 L, Mean Corpuscular Volume 86.5, Mean Corpuscular Hemoglobin 27.7, Mean Corpuscular Hemoglobin Concent 32.0, Red Cell Distribution Width 14.4, Calcium Level 10.6 H, Aspartate Amino Transf (AST/SGOT ) 18, Alanine Aminotransferase (ALT/SGPT) 24, Alkaline Phosphatase 182 H, Total Bilirubin 0.3, Total Protein 7.7, Albumin 2.7 L Kelly Garcia August 09, 2016 12:48
[2016-08-09 14:00] VITALS: BP 141/74
[2016-08-09] MEDS ORDERED: WARFARIN SOD 3 MG TAB PO ONE (17:00)
[2016-08-09 20:00] VITALS: BP 158/82
[2016-08-09] MEDS: ATORVASTATIN 20 MG TAB PO SCH (21:14)
[2016-08-09] MEDS: SENNA 8.6 MG TAB (SENOKOT) PO SCH (21:14)
[2016-08-09] MEDS: MAALOX 30 ML SUSP *UDC PO PRN (23:36)
[2016-08-10 06:00] VITALS: BP 143/83
[2016-08-10 06:26] LABS: MEAN CORPUSCULAR HEMOGLOBIN 27.6 pg (27.0-33.0); MEAN CORPUSCULAR HGB CONC 32.1 g/dl (32.0-36.5); MEAN CORPUSCULAR VOLUME 85.8 fl (80.0-96.0); RED CELL DISTRIBUTION WIDTH 14.5 % (11.5-14.5); WHITE BLOOD COUNT 12.4 K/mm3 (4.0-10.0)
[2016-08-10 06:30] LABS: INR 1.5
[2016-08-10 06:45] LABS: ALBUMIN 2.7 GM/DL (3.2-5.2); ALBUMIN/GLOBULIN RATIO 0.56 (1.00-1.93); BILIRUBIN,TOTAL 0.3 MG/DL (0.2-1.0); CALCIUM LEVEL 10.9 MG/DL (8.5-10.1); CREATININE FOR GFR 1.26 MG/DL (0.55-1.02); GLOMERULAR FILTRATION RATE 46.3 (>51); MAGNESIUM LEVEL 1.6 MG/DL (1.8-2.4); TOTAL PROTEIN 7.5 GM/DL (6.4-8.2)
[2016-08-10] MEDS: HumaLOG INSULIN (NovoLOG) PER UNIT SC SCH ×4 (08:30→20:43)
[2016-08-10] MEDS: metFORMIN (GLUCOPHAGE) 1000 MG TABLET PO SCH ×2 (08:31→17:13)
[2016-08-10] MEDS: ASPIRIN 81 MG ENTERIC TAB PO SCH (08:31)
[2016-08-10] MEDS: RAMIPRIL 2.5 MG CAP PO SCH (08:31)
[2016-08-10] MEDS: FOLIC ACID 1 MG TAB PO SCH (08:32)
[2016-08-10] MEDS: FERROUS GLUCONATE 324 MG TAB PO SCH ×2 (08:32→20:42)
[2016-08-10] MEDS: DULoxetine 30 MG CAP (CYMBALTA) PO SCH (08:35)
[2016-08-10] MEDS: MULTIVITAMINS/MINERALS THERAP 1 TAB PO SCH (08:35)
[2016-08-10] MEDS: ASCORBIC ACID 500 MG TAB PO SCH (08:35)
[2016-08-10] MEDS: METOPROLOL TART 25 MG TABLET PO SCH ×2 (08:35→20:42)
[2016-08-10] MEDS: CHLORTHALIDONE 25 MG TAB PO SCH (08:35)
[2016-08-10] MEDS ORDERED: COLCHICINE 0.6 MG TAB PO SCH (09:00)
--- NOTE | 2016-08-10 09:06 | IPNPDOC ---
Subjective Date Seen The patient was seen on 08/10/16. Subjective Chief Complaint/HPI The patient is a 61-year-old female admitted with a reason for visit of Stroke. Events since last encounter Pt states feet feel better today and swelling is improved. no c/o SOB, PND. No CP reported. Denies any new concerns. ENT: Denies: Head Aches, Dysphagia Pulmonary: Denies: Dyspnea, Cough Cardiovascular: Denies: Chest Pain, Palpitations, Orthopnea, Paroxysmal Noc. Dyspnea, Lt Headedness Gastrointestinal: Denies: Nausea, Vomiting, Abdominal Pain, Diarrhea, Constipation Genitourinary: Denies: Dysuria, Frequency, Incontinence, Retention Objective Physical Examination General Exam: Positive: Alert Eye Exam: Positive: PERRLA ENT Exam: Positive: Atraumatic Neck Exam: Positive: Supple, Negative: JVD (JVD not visible reclined in chair. ) Chest Exam: Positive: Clear to auscultation, Normal air movement, Negative: Rales, Rhonchi, Wheezing Heart Exam: Positive: Rate Normal, Regular Rhythm, Normal S1, Normal S2, Negative: Murmurs, Rubs Extremity Exam: Negative: Clubbing, Cyanosis, Edema Skin Exam: Positive: Nl turgor and temperature Assessment /Plan Problems (1) CVA (cerebral vascular accident) Status: Acute Problem Text: * Mgmt as per ARU. * PT/OT as per ARU. (2) HTN (hypertension) Status: Chronic Problem Text: * Altace. (3) Hyperlipemia Status: Chronic Problem Text: * Lipitor (4) CHF (congestive heart failure) Status: Chronic Problem Text: * CXR 08/05/16 NAD. * No JVD/inspiratory rales. pedal edema resolved * Request I/O, Daily weight. * Pt states unable to wear TEDS * LALITO diet. Recommended modest FR (Pt states she drinks alot of fluids). * Cont to elevate LEs * Continue Chlorthalidone 25 mg daily. * BNP 146. * Lasix 20 mg po x 1 08/09. * Monitor. 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 (6) Chronic kidney disease (CKD) Status: Chronic Problem Text: * Scr stable, 1.26 (7) Anemia Status: Chronic Problem Text: * Hgb 9.5 * Cont Fe supplement. (8) S/P CABG x 6 Status: Chronic Problem Text: * No further CP. * CIP/Trop neg. * Was felt to be non cardiac CP. * ASA/Statin/Lopressor. * Coumadin with goal INR 1.5-1.9. Mgmt as per attending. * Outpt f/u with cardiology. (9) Diarrhea Problem Text: * GI panel requested. * Pending. * Pt with BM x 1 yesterday and today. (10) KAYLA (obstructive sleep apnea) Problem Text: * CPAP (11) Gout Problem Text: * S/P tx with colchicine, finished 08/04/16. * Uric acid acid noted to be elevated, Colchicine added as per attending. Plan/VTE VTE Prophylaxis Ordered?: Yes (Pt on Coumadin. ) VS, I&O, 24H, Fishbone Vital Signs/I&O Vital Signs Date Time Temp Pulse Resp B/P (MAP) Pulse Ox O2 Delivery O2 Flow Rate FiO2 08/10/16 08:31 143/83 08/10/16 06:00 98.7 79 20 96 Room Air 08/07/16 21:45 2.0 I&O- Last 24 Hours up to 6 AM 08/10/16 06:00 Intake Total 1120 ml Output Total 700 ml Balance 420 ml Laboratory Data 24H LABS Laboratory Tests 2 08/09/16 11:22: Bedside Glucose (Misc Panel) 122H 08/09/16 13:48: Uric Acid 11.1H, B-Type Natriuretic Peptide 146H 08/09/16 16:32: Bedside Glucose (Misc Panel) 118H 08/09/16 20:28: Bedside Glucose (Misc Panel) 150H 08/10/16 06:14: Anion Gap 9, Glomerular Filtration Rate 46.3L, Blood Urea Nitrogen 29H, Creatinine 1.26H, Sodium Level 136, Potassium Level 4.0, Chloride Level 104, Carbon Dioxide Level 23, Calcium Level 10.9H, Aspartate Amino Transf (AST/SGOT) 17, Alanine Aminotransferase (ALT/SGPT) 25, Alkaline Phosphatase 166H, Total Bilirubin 0.3, Total Protein 7.5, Albumin 2.7L, Magnesium Level 1.6L, Albumin/ Globulin Ratio 0.56L 08/10/16 06:15: Prothrombin Time 18.2H, Prothromb Time International Ratio 1.50 CBC/BMP Laboratory Tests 08/10/16 06:14 Red Blood Count 3.57 L, Mean Corpuscular Volume 85.8, Mean Corpuscular Hemoglobin 27.6, Mean Corpuscular Hemoglobin Concent 32.1, Red Cell Distribution Width 14.5, Calcium Level 10.9 H, Aspartate Amino Transf (AST/SGOT ) 17, Alanine Aminotransferase (ALT/SGPT) 25, Alkaline Phosphatase 166 H, Total Bilirubin 0.3, Total Protein 7.5, Albumin 2.7 L Kelly Garcia August 10, 2016 09:06
--- NOTE | 2016-08-10 10:39 | IPNPDOC ---
[employer] Tech Progress Note DATE OF SERVICE: 08/10/16 DATE OF ADMISSION: August 02, 2016 at 11:08 INPATIENT REHABILITATION ADMISSION DAY: #8 SUBJECTIVE: Patient is a 61-year-old white female with right CVA with left hemiparesis and CABG 6 vessels. Patient continues to have some parasternal pain related to the operation but not for traditional anginal pain. She expresses her desire to go home sooner but agrees to continue therapy until Monday. She denies any fever or chills and she is doing well with bowel and bladder function. ALLERGIES: See Below MEDICATIONS: Reviewed, see below. OBJECTIVE: VITAL SIGNS: Please see below. PHYSICAL EXAMINATION: GENERAL: Overweight middle-age white female in very mild musculoskeletal distress. HEENT: Normocephalic/atraumatic. CARDIOVASCULAR: Regular rate and rhythm with normal S1 and S2. LUNGS: All hurley are clear auscultation. ABDOMEN: Obese with normal bowel sounds in all quadrants. NEUROLOGICAL: Patient is alert and oriented 4 with definite increase in complexity of language and understanding word meanings. She does appear a little anxious which she expresses is about wanting to go home. Memory is improved. Mobility imbalance also improving in therapies. SKIN: Sternal incision healing well with improving color. Epigastric chest tube wounds are also starting to contract and fill-in without inflammation or drainage. LABORATORY DATA: Reviewed. Please see below. MICROBIOLOGY: Please see below. IMAGING: No new imaging today. DVT prophylaxis ordered?: JENNIFER lópez. ASSESSMENT AND PLAN: 1. Rehabilitation of right CVA with left hemiparesis: It does appear patient also had a secondary diffuse process affecting the neocortex which has markedly improved lying for much more high level functioning. She is also continuing make progress with regards to the right CVA related hemiparesis and balance issues. Overall I still feel patient will benefit from an additional 2 days of therapy with discharge on Monday. We'll continue EEG OT and speech therapy. 2. CABG 6 vessels: The surgery is healing well and cardiac function has been good except for the lower extremity edema. Patient now on fluid restriction of 1800 mL per day. 3. Wound healing: Patient denying some itching by the sternum and we discuss the importance of not scratching and patient has to remind herself not to do that. TIME SPENT: Chart Review, examination and documentation greater than 20 minutes. Allergies Coded Allergies: Erythromycin (Verified Allergy, Intermediate, Welts, 08/02/16) Welts Tetracyclines & Related (Verified Allergy, Intermediate, Welts, 08/02/16) Welts Acetaminophen (Verified Adverse Reaction, Unknown, tinitus, 08/02/16) Also dizziness Vital Signs Vital Signs Date Time Temp Pulse Resp B/P (MAP) Pulse Ox O2 Delivery O2 Flow Rate FiO2 08/10/16 08:31 143/83 08/10/16 08:30 Room Air 08/10/16 06:00 98.7 79 20 96 08/07/16 21:45 2.0 Laboratory Data CBC/BMP Laboratory Tests 08/10/16 06:14 Red Blood Count 3.57 L, Mean Corpuscular Volume 85.8, Mean Corpuscular Hemoglobin 27.6, Mean Corpuscular Hemoglobin Concent 32.1, Red Cell Distribution Width 14.5, Calcium Level 10.9 H, Aspartate Amino Transf (AST/SGOT ) 17, Alanine Aminotransferase (ALT/SGPT) 25, Alkaline Phosphatase 166 H, Total Bilirubin 0.3, Total Protein 7.5, Albumin 2.7 L Labs 24H Laboratory Tests 2 08/09/16 11:22: Bedside Glucose (Misc Panel) 122H 08/09/16 13:48: Uric Acid 11.1H, B-Type Natriuretic Peptide 146H 08/09/16 16:32: Bedside Glucose (Misc Panel) 118H 08/09/16 20:28: Bedside Glucose (Misc Panel) 150H 08/10/16 06:14: Anion Gap 9, Glomerular Filtration Rate 46.3L, Blood Urea Nitrogen 29H, Creatinine 1.26H, Sodium Level 136, Potassium Level 4.0, Chloride Level 104, Carbon Dioxide Level 23, Calcium Level 10.9H, Aspartate Amino Transf (AST/SGOT) 17, Alanine Aminotransferase (ALT/SGPT) 25, Alkaline Phosphatase 166H, Total Bilirubin 0.3, Total Protein 7.5, Albumin 2.7L, Magnesium Level 1.6L, Albumin/ Globulin Ratio 0.56L 08/10/16 06:15: Prothrombin Time 18.2H, Prothromb Time International Ratio 1.50 Current Medications Current Medications Current Medications Al Hydrox/Mg Hydrox/Simethicone (Mylanta) 30 ml Q4HP PRN PO DYSPEPSIA Last administered on 08/09/16t 23:36; Start 08/02/16 at 10:00; Stop 09/01/16 at 09:59 Albuterol Sulfate (Proventil, Ventolin Hfa) 2 puff Q4HP PRN INH SHORTNESS OF BREATH Last administered on 08/03/16 22:56; Start 08/02/16 at 10:30; Stop at 10:29 Alprazolam (Xanax) 0.25 mg QHSP PO ; Start 08/07/16 at 22:30; Stop 08/07/16 at 22: 30; Status DC Alprazolam (Xanax) 0.25 mg QHSP PRN PO ANXIETY Last administered on 08/08/16 00 :51; Start 08/07/16 at 22:30; Stop 08/09/16 at 08:20; Status DC Ascorbic Acid (Vitamin C) 500 mg DAILY PO Last administered on 08/10/16 08:35 ; Start 08/03/16 at 09:00; Stop 09/02/16 at 08:59 Aspirin (Ecotrin) 81 mg DAILY PO Last administered on 08/10/16 08:31; Start at 09:00; Stop 09/02/16 at 08:59 Atorvastatin Calcium (Lipitor) 40 mg QHS PO Last administered on 08/09/16 21:14 ; Start 08/02/16 at 21:00; Stop 09/01/16 at 20:59 Chlorthalidone (Hygroton) 25 mg DAILY PO Last administered on 08/10/16 08:35; Start 08/03/16 at 09:00; Stop 09/02/16 at 08:59 Colchicine (Colcrys) 0.6 mg BID PO Last administered on 08/04/16 09:27; Start 08/02/16 at 21:00; Stop 08/04/16 at 12:00; Status DC Dextrose (Dextrose 50%) 25 ml ASDIRECTED PRN IV SEE LABEL COMMENTS; Start at 13:30; Stop 09/01/16 at 13:29 Duloxetine HCl (Cymbalta) 60 mg DAILY PO Last administered on 08/10/16 08:35; Start 08/03/16 at 09:00; Stop 09/02/16 at 08:59 Ferrous Gluconate (Fergon) 324 mg BID PO Last administered on 08/10/16 08:32; Start 08/02/16 at 21:00; Stop 09/01/16 at 20:59 Folic Acid (Folic Acid) 1 mg DAILY PO Last administered on 08/10/16 08:32; Start 08/03/16 at 09:00; Stop 09/02/16 at 08:59 Glucagon (Glucagon) 1 mg ASDIRECTED PRN SC SEE LABEL COMMENTS; Start 08/02/16 at 13:30; Stop 09/01/16 at 13:29 Glucose (Glucose) 16 GM ASDIRECTED PRN PO SEE LABEL COMMENTS; Start 08/02/16 at 13:30; Stop 09/01/16 at 13:29 Home Med (Med Rec Complete!) ASDIRECTED XX ; Start 08/02/16 at 13:45; Stop at 13:59; Status DC Insulin Human Lispro (HumaLOG INSULIN) See Protocol Table AC SC Last administered on 08/10/16 08:30; Start 08/02/16 at 17:30; Stop 09/01/16 at 17:29 Insulin Human Lispro (HumaLOG INSULIN) See Protocol Table QHS SC ; Start at 21:00; Stop 09/01/16 at 20:59 Magnesium Hydroxide (Milk Of Magnesia) 30 ml DAILYPRN PRN PO CONSTIPATION; Start 08/02/16 at 10:00; Stop 09/01/16 at 09:59 Metformin HCl (Glucophage) 1,000 mg BID@08,18 PO Last administered on 08:31; Start 08/02/16 at 18:00; Stop 09/01/16 at 17:59 Metoprolol Tartrate (Lopressor) 25 mg BID PO Last administered on 08/10/16 08: 35; Start 08/02/16 at 21:00; Stop 09/01/16 at 20:59 Multivitamins (Theragram-M) 1 tab DAILY PO Last administered on 08/10/16 08:35 ; Start 08/03/16 at 09:00; Stop 09/02/16 at 08:59 Nitroglycerin (Nitrostat (1/ 150)) 0.4 mg STAT STAT SL Last administered on 20:20; Start 08/05/16 at 19:56; Stop 08/05/16 at 19:59; Status DC Polyethylene Glycol (Miralax) 1 pkt DAILY PRN PO CONSTIPATION; Start 08/02/16 at 10:00; Stop 09/01/16 at 09:59 Ramipril (Altace) 2.5 mg DAILY PO Last administered on 08/10/16 08:31; Start 08/03/16 at 09:00; Stop 09/02/16 at 08:59 Senna (Senokot) 1 tab QHS PO Last administered on 08/09/16 21:14; Start at 21:00; Stop 09/01/16 at 20:59 Sodium Biphosphate/ Sodium Phosphate (Fleet Enema) 1 ea DAILYPRN PRN [place] CONSTIPATION; Start 08/02/16 at 10:00; Stop 09/01/16 at 09:59 Warfarin Sodium (Coumadin) 3.75 mg DAILY@17 PO Last administered on 08/07/16 17 :02; Start 08/05/16 at 17:00; Stop 08/08/16 at 06:01; Status DC Warfarin Sodium (Coumadin) 4 mg 1T@17 PO Last administered on 08/02/16 17:08; Start 08/02/16 at 17:00; Stop 08/02/16 at 17:01; Status DC HERBERT PHILIPPE MD August 10, 2016 10:38
[2016-08-10] MEDS: ALLOPURINOL 100 MG TAB PO SCH (13:14)
[2016-08-10 14:00] VITALS: BP 128/72
[2016-08-10] MEDS ORDERED: WARFARIN SOD 3 MG TAB PO SCH (17:00)
[2016-08-10 20:00] VITALS: BP 138/72
[2016-08-10] MEDS: ATORVASTATIN 20 MG TAB PO SCH (20:42)
[2016-08-10] MEDS: SENNA 8.6 MG TAB (SENOKOT) PO SCH (20:42)
[2016-08-11 06:00] VITALS: BP 159/82
[2016-08-11 07:14] LABS: MEAN CORPUSCULAR HEMOGLOBIN 27.9 pg (27.0-33.0); MEAN CORPUSCULAR VOLUME 84.8 fl (80.0-96.0); RED CELL DISTRIBUTION WIDTH 14.7 % (11.5-14.5); WHITE BLOOD COUNT 10.1 K/mm3 (4.0-10.0)
[2016-08-11 07:18] LABS: INR 1.35
[2016-08-11 07:53] LABS: ALBUMIN/GLOBULIN RATIO 0.75 (1.00-1.93); BILIRUBIN,TOTAL 0.3 MG/DL (0.2-1.0); CALCIUM LEVEL 10.5 MG/DL (8.5-10.1); CREATININE FOR GFR 1.24 MG/DL (0.55-1.02); GLOMERULAR FILTRATION RATE 47.1 (>51); MAGNESIUM LEVEL 1.5 MG/DL (1.8-2.4); POTASSIUM SERUM 3.9 MEQ/L (3.5-5.1)
[2016-08-11] MEDS: HumaLOG INSULIN (NovoLOG) PER UNIT SC SCH ×2 (08:43→12:21)
[2016-08-11] MEDS: METOPROLOL TART 25 MG TABLET PO SCH ×2 (08:43→20:41)
[2016-08-11] MEDS: CHLORTHALIDONE 25 MG TAB PO SCH (08:44)
[2016-08-11] MEDS: DULoxetine 30 MG CAP (CYMBALTA) PO SCH (08:44)
[2016-08-11] MEDS: FERROUS GLUCONATE 324 MG TAB PO SCH ×2 (08:44→20:40)
[2016-08-11] MEDS: RAMIPRIL 2.5 MG CAP PO SCH (08:45)
[2016-08-11] MEDS: metFORMIN (GLUCOPHAGE) 1000 MG TABLET PO SCH ×2 (08:45→17:51)
[2016-08-11] MEDS: MULTIVITAMINS/MINERALS THERAP 1 TAB PO SCH (08:45)
[2016-08-11] MEDS: ASCORBIC ACID 500 MG TAB PO SCH (08:45)
[2016-08-11] MEDS: ALLOPURINOL 100 MG TAB PO SCH (08:46)
[2016-08-11] MEDS: ASPIRIN 81 MG ENTERIC TAB PO SCH (08:46)
[2016-08-11] MEDS: FOLIC ACID 1 MG TAB PO SCH (09:00)
--- NOTE | 2016-08-11 10:24 | IPNPDOC ---
Drug Abuse Program Coordinator Progress Note DATE OF SERVICE: 08/11/16 DATE OF ADMISSION: August 02, 2016 at 11:08 INPATIENT REHABILITATION ADMISSION DAY: #9 SUBJECTIVE: Patient is a 61-year-old white female with right CVA and left hemiparesis along with CABG 6 vessels. Patient still with some parasternal pain but this is improving. Patient more notes some foot discomfort even though her edema in the lower extremities has improved. Otherwise no complaints other than she is really looking forward to going home and would prefer sooner than later. ALLERGIES: See Below MEDICATIONS: Reviewed, see below. OBJECTIVE: VITAL SIGNS: Please see below. PHYSICAL EXAMINATION: GENERAL: Overweight middle-age white female who is alert and oriented it appears 4. Speech is clear coherent and appropriate affect is pleasant cooperative. Some impulsiveness still remains but this is markedly better. Patient in very mild musculoskeletal distress regarding the sternum and also the right calf vein donor site. HEENT: Normocephalic/atraumatic no dysarthria of speech. CARDIOVASCULAR:) The rate and rhythm with normal S1 and S2 without S3-S4 murmurs or rubs. 2/4 bilateral radial pulses. LUNGS: All hurley clear to auscultation. ABDOMEN: Obese, nontender with further healing of the tube site incisions in the epigastric region and no inflammation or drainage from them. Normal bowel sounds are appreciated in all quadrants. NEUROLOGICAL: As above with improving left by control and endurance engaging. SKIN: Sternal incision shows improving color no inflammation or drainage. Right calf incision also healing without inflammation or drainage. LABORATORY DATA: Reviewed. Please see below. MICROBIOLOGY: Please see below. IMAGING: No new imaging. DVT prophylaxis ordered?: Coumadin continued at 3.75 mg per day as INR head drop to 1.35 from 1.5 yesterday. ASSESSMENT AND PLAN: 1. Rehabilitation of right CVA with left hemiparesis: Patient showing very good progress is about rate meet all discharge goals so will look to discharge to home tomorrow with family and home care including outpatient PT and OT and speech-language pathology. 2. CABG 6 vessels: Overall this is healing well and patient has remained without any anginal type signs. 3. Diabetes mellitus type 2: Doing well with fairly good stability. TIME SPENT: Chart Review, examination and documentation greater than 25 minutes. Allergies Coded Allergies: Erythromycin (Verified Allergy, Intermediate, Welts, 08/02/16) Welts Tetracyclines & Related (Verified Allergy, Intermediate, Welts, 08/02/16) Welts Acetaminophen (Verified Adverse Reaction, Unknown, tinitus, 08/02/16) Also dizziness Vital Signs Vital Signs Date Time Temp Pulse Resp B/P (MAP) Pulse Ox O2 Delivery O2 Flow Rate FiO2 08/11/16 08:43 102 138/80 08/11/16 06:00 98.1 19 97 08/10/16 20:00 Room Air 08/07/16 21:45 2.0 Laboratory Data CBC/BMP Laboratory Tests 08/11/16 06:57 Calcium Level 10.5 H, Aspartate Amino Transf (AST/SGOT) 12 L, Alanine Aminotransferase (ALT/SGPT) 19, Alkaline Phosphatase 161 H, Total Bilirubin 0.3 , Total Protein 7.0, Albumin 3.0 L 08/11/16 06:58 Red Blood Count 3.40 L, Mean Corpuscular Volume 84.8, Mean Corpuscular Hemoglobin 27.9, Mean Corpuscular Hemoglobin Concent 33.0, Red Cell Distribution Width 14.7 H Labs 24H Laboratory Tests 2 08/10/16 11:43: Bedside Glucose (Misc Panel) 131H 08/10/16 16:52: Bedside Glucose (Misc Panel) 122H 08/10/16 19:48: Bedside Glucose (Misc Panel) 143H 08/11/16 06:57: Prothrombin Time 16.8H, Prothromb Time International Ratio 1.35, Anion Gap 8, Glomerular Filtration Rate 47.1L, Blood Urea Nitrogen 28H, Creatinine 1.24H, Sodium Level 137, Potassium Level 3.9, Chloride Level 105, Carbon Dioxide Level 24, Calcium Level 10.5H, Aspartate Amino Transf (AST/SGOT) 12L, Alanine Aminotransferase (ALT/SGPT) 19, Alkaline Phosphatase 161H, Total Bilirubin 0.3, Total Protein 7.0, Albumin 3.0L, Magnesium Level 1.5L, Albumin/Globulin Ratio 0.75L 08/11/16 06:58: Whole Blood Ionized Calcium 5.9H Current Medications Current Medications Current Medications Al Hydrox/Mg Hydrox/Simethicone (Mylanta) 30 ml Q4HP PRN PO DYSPEPSIA Last administered on 08/09/16t 23:36; Start 08/02/16 at 10:00; Stop 09/01/16 at 09:59 Albuterol Sulfate (Proventil, Ventolin Hfa) 2 puff Q4HP PRN INH SHORTNESS OF BREATH Last administered on 08/03/16 22:56; Start 08/02/16 at 10:30; Stop at 10:29 Allopurinol (Zyloprim) 100 mg DAILY PO Last administered on 08/11/16 08:46; Start 08/10/16 at 09:00; Stop 09/09/16 at 08:59 Alprazolam (Xanax) 0.25 mg QHSP PO ; Start 08/07/16 at 22:30; Stop 08/07/16 at 22: 30; Status DC Alprazolam (Xanax) 0.25 mg QHSP PRN PO ANXIETY Last administered on 08/08/16 00 :51; Start 08/07/16 at 22:30; Stop 08/09/16 at 08:20; Status DC Ascorbic Acid (Vitamin C) 500 mg DAILY PO Last administered on 08/11/16 08:45 ; Start 08/03/16 at 09:00; Stop 09/02/16 at 08:59 Aspirin (Ecotrin) 81 mg DAILY PO Last administered on 08/11/16 08:46; Start at 09:00; Stop 09/02/16 at 08:59 Atorvastatin Calcium (Lipitor) 40 mg QHS PO Last administered on 08/10/16 20: 42; Start 08/02/16 at 21:00; Stop 09/01/16 at 20:59 Chlorthalidone (Hygroton) 25 mg DAILY PO Last administered on 08/11/16 08:44; Start 08/03/16 at 09:00; Stop 09/02/16 at 08:59 Colchicine (Colcrys) 0.6 mg BID PO ; Start 08/10/16 at 09:00; Stop 08/13/16 at 08:59; Status Cancel Colchicine (Colcrys) 0.6 mg BID PO Last administered on 08/04/16 09:27; Start 08/02/16 at 21:00; Stop 08/04/16 at 12:00; Status DC Dextrose (Dextrose 50%) 25 ml ASDIRECTED PRN IV SEE LABEL COMMENTS; Start at 13:30; Stop 09/01/16 at 13:29 Duloxetine HCl (Cymbalta) 60 mg DAILY PO Last administered on 08/11/16 08:44; Start 08/03/16 at 09:00; Stop 09/02/16 at 08:59 Ferrous Gluconate (Fergon) 324 mg BID PO Last administered on 08/11/16 08:44; Start 08/02/16 at 21:00; Stop 09/01/16 at 20:59 Folic Acid (Folic Acid) 1 mg DAILY PO Last administered on 08/11/16 09:00; Start 08/03/16 at 09:00; Stop 09/02/16 at 08:59 Glucagon (Glucagon) 1 mg ASDIRECTED PRN SC SEE LABEL COMMENTS; Start 08/02/16 at 13:30; Stop 09/01/16 at 13:29 Glucose (Glucose) 16 GM ASDIRECTED PRN PO SEE LABEL COMMENTS; Start 08/02/16 at 13:30; Stop 09/01/16 at 13:29 Home Med (Med Rec Complete!) ASDIRECTED XX ; Start 08/02/16 at 13:45; Stop at 13:59; Status DC Insulin Human Lispro (HumaLOG INSULIN) See Protocol Table AC SC Last administered on 08/11/16 08:43; Start 08/02/16 at 17:30; Stop 09/01/16 at 17:29 Insulin Human Lispro (HumaLOG INSULIN) See Protocol Table QHS SC ; Start at 21:00; Stop 09/01/16 at 20:59 Magnesium Hydroxide (Milk Of Magnesia) 30 ml DAILYPRN PRN PO CONSTIPATION; Start 08/02/16 at 10:00; Stop 09/01/16 at 09:59 Metformin HCl (Glucophage) 1,000 mg BID@,18 PO Last administered on 08:45; Start 08/02/16 at 18:00; Stop 09/01/16 at 17:59 Metoprolol Tartrate (Lopressor) 25 mg BID PO Last administered on 08/11/16 08: 43; Start 08/02/16 at 21:00; Stop 09/01/16 at 20:59 Multivitamins (Theragram-M) 1 tab DAILY PO Last administered on 08/11/16 08:45 ; Start 08/03/16 at 09:00; Stop 09/02/16 at 08:59 Nitroglycerin (Nitrostat (1/ 150)) 0.4 mg STAT STAT SL Last administered on 20:20; Start 08/05/16 at 19:56; Stop 08/05/16 at 19:59; Status DC Polyethylene Glycol (Miralax) 1 pkt DAILY PRN PO CONSTIPATION; Start 08/02/16 at 10:00; Stop 09/01/16 at 09:59 Ramipril (Altace) 2.5 mg DAILY PO Last administered on 08/11/16 08:45; Start 08/03/16 at 09:00; Stop 09/02/16 at 08:59 Senna (Senokot) 1 tab QHS PO Last administered on 08/10/16 20:42; Start at 21:00; Stop 09/01/16 at 20:59 Sodium Biphosphate/ Sodium Phosphate (Fleet Enema) [address] CONSTIPATION; Start 08/02/16 at 10:00; Stop 09/01/16 at 09:59 Warfarin Sodium (Coumadin) 3 mg DAILY@17 PO Last administered on 08/10/16 17: 12; Start 08/10/16 at 17:00; Stop 08/11/16 at 08:21; Status DC Warfarin Sodium (Coumadin) 3.75 mg DAILY@17 PO ; Start 08/11/16 at 17:00; Stop 08/14/16 at 16:59 Warfarin Sodium (Coumadin) 3.75 mg DAILY@17 PO Last administered on 08/07/16 17 :02; Start 08/05/16 at 17:00; Stop 08/08/16 at 06:01; Status DC Warfarin Sodium (Coumadin) 4 mg 1T@17 PO Last administered on 08/02/16 17:08; Start 08/02/16 at 17:00; Stop 08/02/16 at 17:01; Status DC HERBERT PHILIPPE MD August 11, 2016 10:24
--- NOTE | 2016-08-11 12:15 | IPNPDOC ---
Subjective Date Seen The patient was seen on 08/11/16. Subjective Chief Complaint/HPI The patient is a 61-year-old female admitted with a reason for visit of Stroke. Events since last encounter Pt states no further edema LEs. Has been elevating LEs which has been helping. Pt states she has had some Left foot pain related to her Plantar fasciitis- plan is for taping as per PT today. No other joint complaints. ENT: Denies: Head Aches, Ear Pain, Dysphagia Pulmonary: Denies: Dyspnea, Cough Cardiovascular: Denies: Chest Pain, Palpitations, Orthopnea, Paroxysmal Noc. Dyspnea, Lt Headedness Gastrointestinal: Denies: Nausea, Vomiting, Abdominal Pain, Diarrhea, Constipation Genitourinary: Denies: Dysuria, Frequency, Incontinence, Retention Objective Physical Examination General Exam: Positive: Alert Eye Exam: Positive: PERRLA ENT Exam: Positive: Atraumatic Neck Exam: Positive: Supple, Negative: JVD (JVD not visible reclined in chair. ) Chest Exam: Positive: Clear to auscultation, Normal air movement, Negative: Rales, Rhonchi, Wheezing Heart Exam: Positive: Rate Normal, Regular Rhythm, Normal S1, Normal S2, Negative: Murmurs, Rubs Extremity Exam: Negative: Clubbing, Cyanosis, Edema Skin Exam: Positive: Nl turgor and temperature Assessment /Plan Problems (1) CVA (cerebral vascular accident) Status: Acute Problem Text: * Mgmt as per ARU. * PT/OT, bowel care as per ARU. * Dr Antonio, ARU Attending, managing Coumadin with goal INR 1.5-1.9. (2) HTN (hypertension) Status: Chronic Problem Text: * Altace/Chlorthalidone. (3) Hyperlipemia Status: Chronic Problem Text: * Lipitor (4) CHF (congestive heart failure) Status: Chronic Problem Text: * CXR 08/05/16 NAD. * No JVD/inspiratory rales. pedal edema resolved * Request I/O, Daily weight. * Pt states unable to wear TEDS * LALITO diet. Recommended modest FR (Pt states she drinks alot of fluids). * Cont to elevate LEs * Continue Chlorthalidone 25 mg daily. * BNP 146. * Lasix 20 mg po x 1 08/09. * Monitor. 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 (6) Chronic kidney disease (CKD) Status: Chronic Problem Text: * Scr stable, 1.24 (7) Anemia Status: Chronic Problem Text: * Hgb 9.5 * Cont Fe supplement. (8) S/P CABG x 6 Status: Chronic Problem Text: * No further CP. * CIP/Trop neg. * Was felt to be non cardiac CP. * ASA/Statin/Lopressor. * Coumadin with goal INR 1.5-1.9. Mgmt as per attending. * Outpt f/u with cardiology. (9) Diarrhea Problem Text: * GI panel requested. * Pending. (10) KAYLA (obstructive sleep apnea) Problem Text: * CPAP (11) Gout Problem Text: * Pt with h/o Gout. * S/P tx with colchicine, finished 08/04/16. * Uric acid acid noted to be elevated * Allopurinol added as per attending. (12) Hypercalcemia Problem Text: * Ionized Ca reviewed. * Pt is on Chlorthalidone which may contribute. Pt is on this as outpt as well. * Discussed with Dr Arreaga, further w/u as outpt. Plan/VTE VTE Prophylaxis Ordered?: Yes (Pt on Coumadin. ) VS, I&O, 24H, Fishbone Vital Signs/I&O Vital Signs Date Time Temp Pulse Resp B/P (MAP) Pulse Ox O2 Delivery O2 Flow Rate FiO2 08/11/16 08:43 102 138/80 08/11/16 06:00 98.1 19 97 08/10/16 20:00 Room Air 08/07/16 21:45 2.0 I&O- Last 24 Hours up to 6 AM 08/11/16 06:00 Intake Total 1260 ml Output Total 200 ml Balance 1060 ml Laboratory Data 24H LABS Laboratory Tests 2 08/10/16 16:52: Bedside Glucose (Misc Panel) 122H 08/10/16 19:48: Bedside Glucose (Misc Panel) 143H 08/11/16 06:57: Prothrombin Time 16.8H, Prothromb Time International Ratio 1.35, Anion Gap 8, Glomerular Filtration Rate 47.1L, Blood Urea Nitrogen 28H, Creatinine 1.24H, Sodium Level 137, Potassium Level 3.9, Chloride Level 105, Carbon Dioxide Level 24, Calcium Level 10.5H, Aspartate Amino Transf (AST/SGOT) 12L, Alanine Aminotransferase (ALT/SGPT) 19, Alkaline Phosphatase 161H, Total Bilirubin 0.3, Total Protein 7.0, Albumin 3.0L, Magnesium Level 1.5L, Albumin/Globulin Ratio 0.75L, Prealbumin 31.3 08/11/16 06:58: Whole Blood Ionized Calcium 5.9H CBC/BMP Laboratory Tests 08/11/16 06:57 Calcium Level 10.5 H, Aspartate Amino Transf (AST/SGOT) 12 L, Alanine Aminotransferase (ALT/SGPT) 19, Alkaline Phosphatase 161 H, Total Bilirubin 0.3 , Total Protein 7.0, Albumin 3.0 L 08/11/16 06:58 Red Blood Count 3.40 L, Mean Corpuscular Volume 84.8, Mean Corpuscular Hemoglobin 27.9, Mean Corpuscular Hemoglobin Concent 33.0, Red Cell Distribution Width 14.7 H GME ATTESTATION GME ATTESTATION My preceptor for this patient encounter was physically present in the building during the encounter and was fully available. As needed, all aspects of the patient interview, examination, medical decision making process, and medical care plan development were reviewed and approved by the preceptor. Preceptor is aware and concurs with the plan as stated in the body of this note and will attest to such by his/her cosignature. ATTENDING NOTE I have both independently examined this patient as well as reviewed the note. I have discussed in detail with Kelly the findings and plan of treatment as documented in [facility] note. I will continue to follow the patient and offer further guidance to the patients care as necessary during this hospital stay. Kelly Ramos MD August 11, 2016 12:15 GOOD ARREAGA MD August 12, 2016 06:52
[2016-08-11 14:25] VITALS: BP 127/78
[2016-08-11] MEDS ORDERED: WARFARIN SOD 7.5 MG TAB PO SCH (17:00)
[2016-08-11 20:00] VITALS: BP 135/77
[2016-08-11] MEDS: SENNA 8.6 MG TAB (SENOKOT) PO SCH (20:40)
[2016-08-11] MEDS: ATORVASTATIN 20 MG TAB PO SCH (20:40)
[2016-08-11] MEDS: MAALOX 30 ML SUSP *UDC PO PRN (23:48)
[2016-08-12 06:00] VITALS: BP 141/78
[2016-08-12 07:18] LABS: MEAN CORPUSCULAR HEMOGLOBIN 28.1 pg (27.0-33.0); MEAN CORPUSCULAR HGB CONC 32.9 g/dl (32.0-36.5); MEAN CORPUSCULAR VOLUME 85.3 fl (80.0-96.0); RED CELL DISTRIBUTION WIDTH 14.8 % (11.5-14.5); WHITE BLOOD COUNT 10.8 K/mm3 (4.0-10.0)
[2016-08-12 07:23] LABS: INR 1.33
[2016-08-12 07:47] LABS: ALBUMIN 2.8 GM/DL (3.2-5.2); ALBUMIN/GLOBULIN RATIO 0.61 (1.00-1.93); BILIRUBIN,TOTAL 0.3 MG/DL (0.2-1.0); CALCIUM LEVEL 10.5 MG/DL (8.5-10.1); CREATININE FOR GFR 1.41 MG/DL (0.55-1.02); GLOMERULAR FILTRATION RATE 40.6 (>51); MAGNESIUM LEVEL 1.8 MG/DL (1.8-2.4); POTASSIUM SERUM 3.9 MEQ/L (3.5-5.1); TOTAL PROTEIN 7.4 GM/DL (6.4-8.2)
[2016-08-12] MEDS: ASCORBIC ACID 500 MG TAB PO SCH (09:00)
[2016-08-12] MEDS: CHLORTHALIDONE 25 MG TAB PO SCH (09:23)
[2016-08-12] MEDS: MULTIVITAMINS/MINERALS THERAP 1 TAB PO SCH (09:23)
[2016-08-12] MEDS: DULoxetine 30 MG CAP (CYMBALTA) PO SCH (09:23)
[2016-08-12] MEDS: ALLOPURINOL 100 MG TAB PO SCH (09:23)
[2016-08-12] MEDS: FOLIC ACID 1 MG TAB PO SCH (09:23)
[2016-08-12] MEDS: ASPIRIN 81 MG ENTERIC TAB PO SCH (09:24)
[2016-08-12] MEDS: FERROUS GLUCONATE 324 MG TAB PO SCH (09:24)
[2016-08-12] MEDS: RAMIPRIL 2.5 MG CAP PO SCH (09:24)
[2016-08-12] MEDS: metFORMIN (GLUCOPHAGE) 1000 MG TABLET PO SCH (09:24)
[2016-08-12 09:25] VITALS: BP 141/78
[2016-08-12] MEDS: METOPROLOL TART 25 MG TABLET PO SCH (09:25)
[2016-08-12] MEDS ORDERED: COUM7.5T PO (10:24)
[2016-08-12] MEDS ORDERED: ALLO100T PO (10:33)
--- NOTE | 2016-08-13 23:00 | PMRDS ---
DATE OF ADMISSION: 08/02/2016 DATE OF DISCHARGE: 08/12/2016 DISCHARGE DIAGNOSES: 1. Rehabilitation of right cerebrovascular accident with left hemiparesis but also some global cognitive effects, which have cleared. 2. Status post coronary artery bypass grafting of six vessels on 07/25/2016 that was complicated in the 72-hour postoperative period by the development of this cerebrovascular accident. 3. Atherosclerotic cardiovascular disease with hypertension, coronary artery disease involving three vessels. 4. Type 2 diabetes mellitus with chronic kidney disease, polyneuropathy, and peripheral vascular disease. 5. Chronic kidney disease, stage III, related to diabetes. HISTORY: On 07/19/16 patient developed angina while working. EKG showed ST changes consistent with ischemia. Patient transfered from [facility] to [facility] in [place]. Patient was found to need CABG due to 3 vessel disease vs. angioplasty/stents, so patient underwent CABG*6 vessels on 07/25/[address] Gonzalez. Following that the patient developed changes in left body awareness & control along with aphasia. Right CVA was found and she underwent stroke treatment. on 08/01/16 patient was accepted to [facility] ARU as. patient was felt to be medically stable and ready to participate in acute intensive rehabilitation closer to home and was transferred here on 08/02/2016 for neurorehabilitation of left hemiparesis and decreased sensation but also some aphasia and some frontal lobe findings that diminished within a few days of being here. 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 PROCEDURES PERFORMED: Chest x-ray. No significant findings. DIAGNOSTIC LABORATORY DATA: Patient on Coumadin to keep patent the right leg saphenous vein graft to the heart. INRs were performed daily, and adjustment of Coumadin was made for that target range of 1.5 to 1.8. HOSPITAL COURSE: Patient was admitted on 08/02/2016 and evaluated by physical therapy (PT)/occupational therapy (OT), speech therapy, rehabilitation nursing, and podiatry and medicine consult obtained. Patient overall was very motivated, participating well in therapy, though she did have a bit of impulsiveness and decreased left awareness that led her at one point to ask her to fix the bed if she tried to get up by herself to walk over to the bed and ended up sliding down from the commode to the floor without any significant injury. Patient was gotten off the floor by myself and two nurses without significant problems and was able to continue her rehabilitation therapy shortly thereafter. A lot of the global findings with regard to the moderate aphasia and awareness of her environment markedly improved, and remaining was rehabilitation on the left hemiparesis and some decrease in left-side awareness, which have also improved markedly. Patient had reached her discharge goals today and is felt to be ready for discharge to home with her to followup with home care, physical and occupational therapy, and durable medical equipment felt to be appropriate was issued. DISCHARGE MEDICATIONS: - allopurinol for elevated uric acid 100 mg per day - Coumadin 3.75 mg daily for 6 days, to have every other day two of the INRs drawn by home care and reported to her primary care, Dr. Vicki Macias for medication management adjustment. - albuterol sulfate two puffs every 4 hours as needed for shortness of breath - ascorbic acid 500 mg daily - aspirin, enteric coated, 81 mg daily - atorvastatin 40 mg at bedtime - chlorthalidone 25 mg daily - multivitamin daily - Colace 100 mg twice a day as needed for constipation - duloxetine 60 mg daily - ferrous sulfate 324 mg twice a day for anemia - folic acid 1 mg by mouth daily for anemia - metformin 1000 mg by mouth twice a day for diabetes - metoprolol tartrate 25 mg twice a day for hypertension - ramipril 2.5 mg by mouth daily - colchicine has been stopped due to intolerance Patient to see Dr. Gonzalez, her vascular surgeon in [place] in 2-3 weeks, Dr. Vicki Macias in approximately 1-2 weeks, Dr. Terry in 1-2 weeks, and neurologist, Dr. Dagoberto Marr, in approximately 2 weeks. TIME SPENT ON DISCHARGE: Greater than 35 minutes. MTDD
== END 2016-08-12 12:45 | disposition home health service (06) | DRG 58 ==
LOC: EDSEX 11:08 → M PM&R 11:08 → M PCU 08-05 20:07 → M PM&R 08-06 12:00
PROVIDERS: ADMIT Physical Medicine & Rehabilitation; ATTEND Physical Medicine & Rehabilitation
DX: I69.354 Hemiplegia and hemiparesis following cerebral infarction affecting left non-dominant side (principal); I13.0 Hypertensive heart and chronic kidney disease with heart failure and stage 1 through stage 4 chronic kidney disease, or unspecified chronic kidney disease; E11.40 Type 2 diabetes mellitus with diabetic neuropathy, unspecified; E11.29 Type 2 diabetes mellitus with other diabetic kidney complication; I50.9 Heart failure, unspecified; E88.09 Other disorders of plasma-protein metabolism, not elsewhere classified; E83.52 Hypercalcemia; E61.1 Iron deficiency; N18.3 Chronic kidney disease, stage 3 (moderate); I69.320 Aphasia following cerebral infarction; I25.10 Atherosclerotic heart disease of native coronary artery without angina pectoris; I73.9 Peripheral vascular disease, unspecified; E78.5 Hyperlipidemia, unspecified; R07.9 Chest pain, unspecified; G47.33 Obstructive sleep apnea (adult) (pediatric); R19.7 Diarrhea, unspecified; R60.0 Localized edema; D64.9 Anemia, unspecified; M10.9 Gout, unspecified; J45.909 Unspecified asthma, uncomplicated; M72.2 Plantar fascial fibromatosis; Z79.899 Other long term (current) drug therapy; Z88.1 Allergy status to other antibiotic agents; Z95.5 Presence of coronary angioplasty implant and graft; Z79.01 Long term (current) use of anticoagulants; Z79.82 Long term (current) use of aspirin; Z85.42 Personal history of malignant neoplasm of other parts of uterus; Z92.21 Personal history of antineoplastic chemotherapy; Z99.89 Dependence on other enabling machines and devices; Z88.6 Allergy status to analgesic agent; Z83.3 Family history of diabetes mellitus; Z82.49 Family history of ischemic heart disease and other diseases of the circulatory system; Z79.84 Long term (current) use of oral hypoglycemic drugs

== ENCOUNTER 2016-08-05 21:00 | Inpatient (IN) | payer BC ==
[~2016-08-05 21:00] MED LIST: ASCO500T PO; ASPI1TAB PO; ATOR40TA PO; CHLO25TA PO; COLA100C3 PO; COLC1TAB13 PO; CYMB60CA3 PO; DAILTAB51 PO; FERR325T16 PO; FOLI1TAB2 PO; METF1000 PO; METO25TAB PO; PROA1AER INH; RAMI25CA PO; WARF-20 PO
--- NOTE | 2016-08-06 11:09 | IPN ---
DATE: 08/06/2016 Luisana was transferred from physical medicine and rehabilitation (PMR) with atypical chest pain. She had had a recent myocardial infarction (PA) and the chest pain felt different than the pain she had with her PA. She was admitted with a stroke with left hemiparesis, postoperative coronary artery bypass graft (CABG). She is pain free and has had no recurrence of the pain that led to her transfer from R. PHYSICAL EXAMINATION: Blood pressure 125/69, pulse of 82, respiratory rate 18, 99% oxygen saturation. Alert, conversant, in no distress. Lungs: Clear. Heart: Regular without murmur. Abdomen: Soft, nontender. No peripheral edema. LABORATORY: Troponins are flat. EKG shows no ischemia. Creatinine is stable. IMPRESSION: Noncardiac chest pain. PLAN: She can be transferred back to the physical medicine and rehabilitation unit.
--- NOTE | 2016-08-06 21:11 | HPE ---
DATE OF ADMISSION: 08/02/2016 PRIMARY CARE PHYSICIAN: Dr. Macias. DIETARY DIRECTOR: Dr. Terry. CARDIOVASCULAR SURGEON: Dr. Gonzalez. PHYSICAL MEDICINE AND REHABILITATION ATTENDING: Dr. Shahbaz Antonio. CHIEF COMPLAINT: Chest pain. CODE STATUS: Full code. HISTORY OF PRESENT ILLNESS: Ms. Robledo is a 61-year-old female with multiple past medical history who is admitted to PM&R on 08/02/2016. Today the patient had two episodes of chest pain; one during the physical activities. However, the patient did not mention it to her family or nursing staff. The second one was this afternoon when she was working on a puzzle. The patient described the pain as sharp pain, 5/10, mostly stationary on the middle sternum. The patient expressed that she another episode of chest pain on Monday with activities. However, she did not notify nursing staff or her family members on that time. The patient is on rehabilitation after right cerebrovascular accident (CVA) with left hemiparesis secondary to embolic event from the postoperative coronary artery bypass graft (CABG) times six vessels, which was done on 07/25/2016. The patient expressed that two weeks ago, the patient developed chest pain with radiation to the left upper extremity. Electrocardiogram (EKG) revealed notable ST elevation, and the patient was transferred to [facility] on 07/19/2016. Cardiac catheterization revealed severe three-vessel disease and angioplasty and stent placement were not considered adequate, so the patient had the CABG times six, which was done by Dr. Gonzalez. Surgery was successful, and the patient was transferred to the intensive care unit (ICU), and then on the first postoperative day, she transferred to the floor. The patient's chest tubes were removed on postoperative day two, and she was started on Coumadin with INR goal of 1.5 to 1.9 to maintain the vein patency. It as noticed that patient developed left-sided weakness, left lower extremity more than left upper extremity, as well as unsteady gait with abnormal communication and mental alteration. CT showed atrophy and chronic small-vessel changes, but no bleeding of acute abnormalities was noted. The patient also had an episode of flareup of the right ankle tenderness which was felt to be due to gout, and was started on colchicine. The patient expressed that at this time she has diarrhea secondary to colchicine, and this is a chronic issue for her due to colchicine. The patient was started on aspirin 81 mg, as well as 4 mg of Coumadin per day for treatment of vein patency and clot prevention. The patient also has obstructive sleep apnea and uses continuous positive airway pressure (CPAP). According to the her and her family, since she has been admitted to the PM&R, her left upper and lower extremity function has improved tremendously. PAST MEDICAL HISTORY: 1. Asthma. 2. Arthritis. 3. Congestive heart failure. 4. Chronic kidney disease. 5. Diabetes type 2. 6. Gout. 7. Hypertension. 8. Uterine cancer. 9. Cerebrovascular accident (CVA). PAST SURGICAL HISTORY: 1. Median sternotomy. 2. VALADEZ. 3. CABG times six vessels. 4. Endoscopic 5. right saphenous vein harvest. ALLERGIES: The patient has allergy to TYLENOL, TETRACYCLINE and AZITHROMYCIN. FAMILY HISTORY: Father at 47 due to myocardial infarction (IN). Mother has hypertension and diabetes, and she is alive. The patient has five brothers and sisters. All of them have hypertension, hypercholesterolemia, type 2 diabetes, and her younger sister had an IN four months ago at age 52. 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 The patient drinks alcohol socially about two times a month. No recreational drug use. No recent travel. She has a dog and a parrot at home. She lives with her . HOME MEDICATIONS: - ProAir HFA two puffs inhaler every four hours as needed for shortness of breath - ascorbic acid 500 mg by mouth daily - aspirin 81 mg by mouth daily - atorvastatin calcium 40 mg by mouth at bedtime - chlorthalidone 25 mg by mouth daily - colchicine 0.6 mg by mouth twice a day - Daily-Manju one tablet by mouth daily - Colace 100 mg by mouth twice a day as needed for constipation - Cymbalta 60 mg by mouth daily - ferrous gluconate 224 mg by mouth twice a day - folic acid 1 mg by mouth daily - metformin 1000 mg by mouth twice a day Monday, Monday - metoprolol 25 mg by mouth twice a day - ramipril 2.5 mg by mouth daily - warfarin 4 mg by mouth REVIEW OF SYSTEMS: GENERAL: The patient denies fevers, chills, night sweats, weight loss, weight gain. HEENT: The patient denies headache, lightheadedness or dizziness. The patient denies acute vision or hearing changes. The patient denies problem with chewing food or sinusitis. NECK: The patient denies lumps, bumps, or decreased range of motion of her neck. CHEST: The patient has chest pain mostly located at the mediastinum with no radiation. The patient describes the pain as sharp, achy pain. At the start was 5/10; however, it has decreased to 3/10. The patient denies palpitations, racing or skipping heartbeat. LUNGS: The patient denies shortness of breath. No coughing. ABDOMEN: The patient denies abdominal pain, nausea, vomiting, diarrhea, constipation, melena, hematochezia, or hemoptysis. NEUROLOGIC: The patient has CVA with the left upper and lower extremity weakness. However, the patient denies seizure-type activities. PHYSICAL EXAMINATION: VITAL SIGNS: Temperature 98.6, pulse 86, respiratory rate 18, blood pressure 144/78, pulse oximetry 96% on room air. Total intake from yesterday 1800, total balance was +1800. GENERAL APPEARANCE: The patient was lying in bed in no acute distress. The patient was alert, awake, oriented to time, place, and person. HEENT: Normocephalic, atraumatic. Pupils are equal, round. Mucus is moist. NECK: Soft, supple. No lymphadenopathy, no thyromegaly. HEART: The patient has regular rate and rhythm. Normal S1, S2. CHEST: The patient has healing sternotomy incision without erythema, edema or drainage. Surgical site is clean and the patient has mild pain in that area which is appropriate to the surgical site. LUNGS: Clear breath sounds bilaterally. Good air movement. No wheezes, rales, or rhonchi were noticed. ABDOMEN: Soft, obese. Positive bowel sounds in all quadrants. EXTREMITIES: The patient has a good range of motion in both upper and lower extremities. The patient has normal strength 5/5. 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 The patient has a small purple-blue ecchymosis on the left upper extremity and possibly secondary to intravenous (IV). NEUROLOGIC: Cranial nerves II through XII are intact. No focal deficiencies. The patient is awake, alert, and oriented to time, place, and person. The patient has normal communication, as well as making sentences and using words. PSYCHIATRIC: The patient is cooperative and pleasant, in a good mood. LABORATORY DATA: White blood cells 13, red blood cells 3.32, hemoglobin 9.4, hematocrit 29.2, MCV 87.8, MCH 28.2, MCHC 32.1, RDW 14, platelets 519. PT 19, INR 1.58. Sodium 137, potassium 3.9, chloride 103, carbon dioxide 25, anion gap 9, BUN 28, creatinine 1.27, glomerular filtration rate 45.9, fasting glucose 122, calcium 10.4, magnesium 1.7. Total bilirubin 0.3, AST 17, ALT 19, alkaline phosphatase 175. Total protein 7.2, albumin 2.6. IMAGING: Chest x-ray result is pending at this time. EKG result is pending at this time. ASSESSMENT AND PLAN: 1. Angina. Patient has extended risk factor as well as having cardiac procedure (CABG) recently. I ordered cardiac marker and the result is pending at this time. Also, I have ordered EKG, chest x-ray, as well as labs are pending. I also gave one dose of aspirin 81 mg and nitroglycerin 0.4 mg which the patient expressed that after nitroglycerin, her chest pain was gone. I will transfer her to progressive care unit (PCU). 2. Hypomagnesemia. I gave one dose of magnesium run. we will check the magnesium level again tomorrow. 3. Atherosclerosis cardiovascular disease. Will continue patient on antihypertensive medications (Ramipril, metoprolol tartrate). Also, the patient is on atorvastatin and aspirin, along with Coumadin. Will continue monitoring the prothrombin time (PT) and international normalized ratio (INR), and the target INR range is 1.5 to 1.8. 4. Diabetes type two. The patient is on consistent carbohydrate diet. Also patient is on a sliding scale. 5. Diarrhea. This is possibly secondary to medication (colchicine). This is a chronic issue for the patient, and she has been experiencing diarrhea in the past with using colchicine. 6. Asthma. Well controlled. The patient is on an inhaler (albuterol). Also patient is on oxygen. 7. Deep venous thrombosis (DVT) prophylaxis. The patient is on warfarin. 8. Acute on chronic kidney disease. Today the patient's kidney function is better compared to yesterday. We will continue to monitor the patient's renal function. 9. Hyperlipidemia. The patient is on a statin. 10. Hypertension. The patient is on Ramipril, metoprolol tartrate. 11. Iron deficiency. The patient is on ferrous gluconate 324 mg by mouth twice a day. 12. Anemia. This is possibly secondary to surgery versus iron deficiency. The patient is on ferrous gluconate. patient had both colonoscopy and EGD several years ago which were negative. My preceptor for this patient encounter was Dr. Syed Rudd. The preceptor was physically present in the building during the encounter and was fully available as needed. All aspects of the patient interview, examination, medical decision making process, and medical care plan development were reviewed and approved by the preceptor. The preceptor is aware and concurs with the plan as stated in the body of this note and will attest to such by his/her co-signature. KIERAN
--- NOTE | 2016-09-13 05:17 | DSES ---
DATE OF ADMISSION: 08/05/2016 DATE OF DISCHARGE: 08/06/2016 REASON FOR ADMISSION: Chest pain. HISTORY OF PRESENT ILLNESS: The patient is a 61-year-old female with multiple past medical history who was admitted to physical medicine and rehabilitation ([facility]) on 08/02/2016 for therapy. On 08/05/2016, the patient developed chest pain and was admitted to inpatient progressive care unit (PCU) for monitoring and to rule out any cardiac disease. HOSPITAL COURSE: The patient was moved to telemetry monitoring and troponins and electrocardiogram (EKG) were ordered. Once the patient was ruled out, she was discharged back to [facility] on 08/06/2016.
== END 2016-08-06 12:00 | DRG 203 ==
LOC: M PCU 21:00
PROVIDERS: ADMIT Internal Medicine; ATTEND Internal Medicine
DX: R07.9 Chest pain, unspecified (principal); J45.909 Unspecified asthma, uncomplicated; M10.9 Gout, unspecified; E11.9 Type 2 diabetes mellitus without complications; N18.9 Chronic kidney disease, unspecified; M19.90 Unspecified osteoarthritis, unspecified site; I50.9 Heart failure, unspecified; G47.33 Obstructive sleep apnea (adult) (pediatric); Z86.73 Personal history of transient ischemic attack (TIA), and cerebral infarction without residual deficits; Z85.42 Personal history of malignant neoplasm of other parts of uterus; Z88.8 Allergy status to other drugs, medicaments and biological substances; Z88.1 Allergy status to other antibiotic agents; Z79.82 Long term (current) use of aspirin; Z79.899 Other long term (current) drug therapy; E83.42 Hypomagnesemia; R19.7 Diarrhea, unspecified; E78.5 Hyperlipidemia, unspecified; I13.0 Hypertensive heart and chronic kidney disease with heart failure and stage 1 through stage 4 chronic kidney disease, or unspecified chronic kidney disease